=== PATIENT | female | born 2000 | race Caucasian/White ===

== ENCOUNTER 2020-11-28 17:23 | Emergency (ER) | payer OTHER, SELFPAY ==
[2020-11-28 17:32] VITALS: BP 130/60; PULSE 77; RESP 16; TEMP 36.2; O2SAT 99; BMI 34.3
--- NOTE | 2020-11-28 17:43 | ED_ITS ---
HPI - General Adult General Chief complaint: General Medical Stated complaint: TEST Time Seen by Provider: 11/28/20 17:39 Source: patient Mode of arrival: ambulatory Limitations: no limitations History of Present Illness HPI narrative: 20-year-old female presents with positive OTC test, requesting a urinalysis test at this facility. States 1st , does not have any other concerns. Denies chest pain pressure palpitations shortness breath abdominal pain abdominal distention dysuria hematuria vaginal discharge abnormal vaginal bleeding, pelvic pain or any other concerning sy mptoms. Severity: mild Severity scale (1-10): 1 Associated symptoms: denies other symptoms Related Data Allergies Allergy/AdvReac Type Severity Reaction Status Date / Time No Known Allergies Allergy Unverified 05/31/20 19:42 [No Known Allergies*] Review of Systems Review of Systems: Constitutional: No Fever, No Chills ENT/Mouth: No Ear Pain, No Hoarseness, No sore throat Eyes: No Eye Pain, No Swelling, No Redness, No Foreign Body Cardiovascular: No Chest Pain, No SOB Respiratory: No Cough, No Dyspnea Gastrointestinal: No Nausea, No Vomiting, No Diarrhea, No abdominal Pain Genitourinary: Missed menstrual cycle, No Dysuria, No Hematuria Musculoskeletal: No joint pain, No Myalgias, No Joint Swelling Skin: No Skin lacerations, No rash Neuro: No Weakness, No Numbness, No Paresthesias, No Loss of Consciousness, No Dizziness, No Headache Psych: No Anxiety/Panic, No Depression Heme/Lymph: no easy bruising, no Lymphadenopathy Endocrine: No Polyuria, No Polydipsia Yes all other systems are reviewed and are negative [facility] Past Medical History Attestation statement: The following information was validated with the patient. Source: old records reviewed Medical History No known health problems Social History Social History Alcohol intake: never Smoking Status: Never smoker Substance Use Type: Marijuana Advance Directives: No Advance Directives Information Provided: No Physical Exam Vital Signs: Vital Signs: Last Vital Signs Temp 97.2 F 11/28/20 17:32 Pulse 77 11/28/20 17:32 Resp 16 11/28/20 17:32 BP 130/60 11/28/20 17:32 Pulse Ox 99 11/28/20 17:32 Body Mass Index 34.3 Appearance: Alert. Oriented X3. No acute distress. Eyes: Pupils equal, round and reactive to light. ENT: Pharynx normal. Neck: Normal inspection. Neck supple. CVS: Normal heart rate and rhythm. Pulses normal. Respiratory: No respiratory distress. Breath sounds normal. Abdomen: Soft and nontender. Skin: Skin warm and dry. Normal skin color. Normal skin turgor. Extremities: No lower extremity edema. Neuro: No motor deficit. No sensory deficit. Course Course Course Narrative: 20-year-old female with no significant past medical history presents with a missed menstrual cycle, had a positive OTC test. Would like urinalysis test at this facility. U preg positive. Will refer to [facility] for care. Patient verbalized understanding of and agrees plan of care discharge home. Medical Decision Making Differential Diagnosis Differential Diagnosis: , amenorrhea Medical Records Medical records reviewed: Yes I reviewed the patient's medical records. Lab Data Lab results reviewed: Yes I reviewed the patient's lab results. Labs: Lab Results 11/28/20 Range/Units 17:40 Urine Test POSITIVE H (NEGATIVE) Discharge Plan Discharge Clinical Impression: Qualifiers: Weeks of gestation: less than 8 weeks Qualified Code(s): Z3A.01 - Less than 8 weeks gestation of Patient Disposition: Home, Self-Care Instructions: (ED) Additional Instructions: You were evaluated in the emergency department for urinalysis test. test is positive. Please follow-up with OBGYN. Thank you for choosing this emergency department for evaluation. Please follow-up with primary care physician as needed. Return to the emergency department for any new, concerning, or worsening symptoms. Referrals: Kalyan Buenrostro MD [Physician] - 2 weeks ( care)
[2020-11-28 18:08] LABS: UPreg QC Valid YES; Urine Pregnancy POSITIVE (NEGATIVE)
== END 2020-11-28 18:38 | disposition home or self-care (01) ==
PROVIDERS: Emergency Provider Emergency Medicine
DX: Z32.01 Encounter for pregnancy test, result positive (principal); F12.90 Cannabis use, unspecified, uncomplicated
CPT/HCPCS: 81025; 99282; 99284

== ENCOUNTER → 2020-12-05 09:34 | Outpatient (BNVA) | payer OTHER, SELFPAY | PROVIDERS: Visit Provider Advanced Practice Midwife | DX: Z32.01 Encounter for pregnancy test, result positive (principal); Z87.898 Personal history of other specified conditions | CPT/HCPCS: 81025; 99202 ==

== ENCOUNTER 2020-12-05 20:31 | Emergency (ER) | payer OTHER, SELFPAY ==
--- NOTE | ~2020-12-05 | US_ITS ---
EXAMINATION: US OBSTETRICAL ULTRASOUND CLINICAL INFORMATION: Abdominal pain and vaginal discharge. 6 weeks COMPARISON: 03/07/2020. TECHNIQUE: Both endovaginal and transabdominal scanning was performed. FINDINGS: The uterus is anteverted measuring 10.0 x 5.0 x 5.6 cm. Nabothian cysts are noted in the cervix. A gestational sac is present in the endometrial canal with a yolk sac seen along with a pole. The crown-rump length is 0.28 cm cyst which corresponds to a gestational age of 6 weeks 0 days with an TORI of 07/31/2021. A heart rate of 102 bpm was noted. No free intraperitoneal fluid was seen. The right ovary measured 2.8 x 3.3 x 1.8 cm and contained a 1.4 x 1.4 x 1.2 cm corpus luteum cyst. The left ovary measured 1.7 x 1.8 x 1.8 cm and appeared normal. US/US OB <= 14 weeks fetus IMPRESSION: 1. Single intrauterine gestation with ultrasound gestational age of 6 weeks +/- 4 days. 2. Estimated date of delivery is 07/31/2021 +/- 4 days. 3. No maternal adnexal mass or pelvic ascites.
--- NOTE | ~2020-12-05 | US_ITS ---
EXAMINATION: US OBSTETRICAL ULTRASOUND CLINICAL INFORMATION: Abdominal pain and vaginal discharge. 6 weeks COMPARISON: 03/07/2020. TECHNIQUE: Both endovaginal and transabdominal scanning was performed. FINDINGS: The uterus is anteverted measuring 10.0 x 5.0 x 5.6 cm. Nabothian cysts are noted in the cervix. A gestational sac is present in the endometrial canal with a yolk sac seen along with a pole. The crown-rump length is 0.28 cm cyst which corresponds to a gestational age of 6 weeks 0 days with an TORI of 07/31/2021. A heart rate of 102 bpm was noted. No free intraperitoneal fluid was seen. The right ovary measured 2.8 x 3.3 x 1.8 cm and contained a 1.4 x 1.4 x 1.2 cm corpus luteum cyst. The left ovary measured 1.7 x 1.8 x 1.8 cm and appeared normal. US/US OB transvaginal IMPRESSION: 1. Single intrauterine gestation with ultrasound gestational age of 6 weeks +/- 4 days. 2. Estimated date of delivery is 07/31/2021 +/- 4 days. 3. No maternal adnexal mass or pelvic ascites.
[2020-12-05 21:01] VITALS: BP 109/58; PULSE 75; RESP 16; TEMP 36.8; O2SAT 99; BMI 33.1
[2020-12-05 21:38] LABS: MANUAL DIFF FLAG NO
[2020-12-05 21:43] LABS: Basophils Percent Auto 0.3 % (0-2); Eosinophils Absolute Auto 0.1 X10*3/uL (0.0-0.4); Hematocrit 37.9 % (37-47); Hemoglobin 12.2 g/dl (12.0-16.0); Imm Gran Abs Auto 0.04 X10*3/uL (0.00-0.03); Imm Gran Pct Auto 0.3 % (0.0-0.4); Lymphocytes Absolute Auto 2.4 X10*3/uL (1.2-4.9); Lymphocytes Percent Auto 19.3 % (20-40); Mean Corpuscular HGB Conc 32.2 g/dl (31.0-35.0); Mean Corpuscular Hemoglobin 28.2 pg (27.0-33.0); Mean Corpuscular Volume 87.7 fL (80-98); Mean Platelet Volume 11.3 fL (9.4-12.3); Monocytes Percent Auto 8.2 % (2-11); Neutrophils Absolute Auto 8.8 X10*3/uL (2.0-8.3); Neutrophils Percent Auto 70.9 % (45-73); Platelet Count 365 X10*3/uL (160-400); Red Blood Count 4.32 X10*6/uL (4.20-5.50); White Blood Count 12.4 X10*3/uL (4.8-10.8)
[2020-12-05 21:47] LABS: Glucose Urine UA NEG (NEG); Leukocyte Esterase Urine NEG (NEG); Nitrite Urine NEG (NEG); Urine Blood NEG (NEG); Urine Ketones NEG (NEG); Urine Protein NEG (NEG-TRACE)
[2020-12-05 21:49] LABS: Appearance Urine CLEAR; Color Urine YELLOW; UPreg QC Valid YES; Urine Pregnancy POSITIVE (NEGATIVE)
[2020-12-05 22:00] VITALS: BP 117/49; PULSE 67; RESP 16; TEMP 36.6; O2SAT 99
[2020-12-05 22:00] LABS: Alanine Aminotransferase 9 U/L (0-31); Albumin Level 4.2 g/dL (3.5-5.0); Alkaline Phosphatase 55 U/L (39-117); Anion Gap 14 (12-20); Aspartate Amino Transferase 13 U/L (5-31); Bilirubin Total 0.4 mg/dL (0.0-1.0); Blood Urea Nitrogen 15 mg/dL (9-16); Calcium 9.3 mg/dL (8.4-10.2); Carbon Dioxide 24 mmol/L (22-29); Chloride 104 mmol/L (96-108); Creatinine Clr Calc Pharmacy 103.4; Estimated Glomerular Filt Rate > 60; Glucose Random 74 mg/dL (60-115); Lipase 56 U/L (8-78); Potassium 4.2 mmol/L (3.3-5.1); Sodium 138 mmol/L (135-145); Total Protein 7.1 g/dL (6.5-8.0)
--- NOTE | 2020-12-05 22:38 | PC.NURSE ---
PATIENT RETURNING FROM ULTRASOUND, AWAITING RESULTS.
--- NOTE | 2020-12-05 23:33 | ED_ITS ---
HPI - General Chief complaint: Vaginal Bleeding <LEXA Pan - Last Filed: 12/06/20 01:11> Stated complaint: Vaginal pain/discharge 6 wks preg <LEXA Pan - Last Filed: 12/06/20 01:11> Time Seen by Provider: 12/05/20 22:05 <LEXA Pan - Last Filed: 12/06/20 01:11> Source: patient <LEXA Pan Last Filed: 12/06/20 01:11> Mode of arrival: ambulatory <LEXA Pan - Last Filed: 12/06/20 01:11> Limitations: no limitations <LEXA Pan Last Filed: 12/06/20 01:11> History of Present Illness HPI Narrative: 20-year-old female with a past medical history of prediabetes, ovarian cyst, urinary calculi, UTI who is currently approximately 6 weeks last menstrual period was 10/29/2020 with recurrent due date of 07/29/2021 being followed by OB had her 1st appointment today presenting to the ED for complaints of suprapubic abdominal pain with associated abnormal vaginal discharge/vaginal bleeding that started today. Denies any fevers, chest pain, shortness of breath, nausea/vomiting, diarrhea, constipation, hematuria or thoughts of STDs. Denies recent travel or sick contacts or any other symptoms complaints or co ncerns at this time. <LEXA Pan - Last Filed: 12/06/20 01:11> MD Complaint: abdominal pain, vaginal bleeding and vaginal discharge <LEXA Pan - Last Filed: 12/06/20 01:11> Onset (ago): day(s) (today) <LEXA Pan - Last Filed: 12/06/20 01:11> Pain Consistency: constant <LEXA Pan Last Filed: 12/06/20 01:11> Location: pelvis <LEXA Pan Last Filed: 12/06/20 01:11> Severity: mild <LEXA Pan Last Filed: 12/06/20 01:11> Quality: Cramping and Aching <LEXA Pan Last Filed: 12/06/20 01:11> Relieving factors: none <LEXA Pan - Last Filed: 12/06/20 01:11> Exacerbating factors: none <LEXA Pan - Last Filed: 12/06/20 01:11> Associated symptoms: vaginal bleeding and vaginal discharge <LEXA Pan - Last Filed: 12/06/20 01:11> Vaginal discharge: other (White/brown/red discharge) <LEXA Pan - Last Filed: 12/06/20 01:11> Vaginal bleeding: other (Possibly) <LEXA Pan - Last Filed: 12/06/20 01:11> Date of Last Menstrual Period: 10/29/20 <LEXA Pan - Last Filed: 12/06/20 01:11> Patient : Yes <LEXA Pan - Last Filed: 12/06/20 01:11> Expected Date of Delivery: 07/29/21 <LEXA Pan - Last Filed: 12/06/20 01:11> Number of Weeks : 6 <LEXA Pan - Last Filed: 12/06/20 01:11> OB History - Current : no complications <LEXA Pan - Last Filed: 12/06/20 01:11> OB History - Previous Pregnancies: other (Has never had any previous pregnancies) <LEXA Pan - Last Filed: 12/06/20 01:11> care: followed by OB (Had her 1st appointment today) <LEXA Pan - Last Filed: 12/06/20 01:11> Related Data : 1 <LEXA Pan - Last Filed: 12/06/20 01:11> Para: 0 <LEXA Pan - Last Filed: 12/06/20 01:11> Total number of abortions (spontaneous and elective): 0 <LEXA Pan - Last Filed: 12/06/20 01:11> Home medications: Previous Rx's Medication Instructions Recorded doxylamine succinate 25 mg tablet 25 mg PO BEDTIME PRN #30 tab 12/05/20 vitamin with calcium 1 tab PO DAILY #90 tab 12/05/20 no.72-iron 27 mg-folic acid 1 mg tablet pyridoxine (vitamin B6) 25 mg 25 mg PO TID #90 tab 12/05/20 tablet acetaminophen [Tylenol Extra 1,000 mg PO QID PRN #14 tab 12/06/20 Strength] metronidazole 1 appful VAGINAL BID 7 Days g 12/06/20 <LEXA Pan Last Filed: 12/06/20 01:11> Allergies/Adverse reactions: Allergies Allergy/AdvReac Type Severity Reaction Status Date / Time No Known Allergies Allergy Verified 12/19/20 10:09 [No Known Allergies*] <LEXA Pan Last Filed: 12/06/20 01:11> Review of Systems Review of Systems: Constitutional : No Fever, No Chills ENT/Mouth : No sore throat, No Rhinorrhea Eyes: No Eye Pain, No Redness Cardiovascular : No Chest Pain, No SOB Respiratory : No Cough, No Sputum, No Wheezing Gastrointestinal : + Abdominal pain, No Nausea, No Vomiting, No Diarrhea Genitourinary : + irregular bleeding, + vaginal discharge, No Dysuria, No Urinary Frequency, No pelvic pain, no hematuria Musculoskeletal : No Myalgias Skin : No rash Neuro : No Weakness, No Headache Psych : No Anxiety/Panic, No Depression Heme/Lymph: No bruising, No Lymphadenopathy Endocrine : No Polyuria, No Polydipsia <LEXA Pan Last Filed: 12/06/20 01:11> Yes all other systems are reviewed and are negative <LEXA Pan Last Filed: 12/06/20 01:11> [facility] Past Medical History Attestation statement: The following information was validated with the patient. <LEXA Pan Last Filed: 12/06/20 01:11> Medical History: Medical History No known health problems <LEXA Pan Last Filed: 12/06/20 01:11> : 1 <LEXA Pan Last Filed: 12/06/20 01:11> Para: 0 <LEXA Pan Last Filed: 12/06/20 01:11> Total number of abortions (spontaneous and elective): 0 <LEXA Pan Last Filed: 12/06/20 01:11> Date of Last Menstrual Period: 10/29/20 <LEXA Pan - Last Filed: 12/06/20 01:11> Family History Family History: Family History Mother Thyroid disease <LEXA Pan - Last Filed: 12/06/20 01:11> Social History Social History: Social History (Updated 12/19/20 @ 10:16 by Gin Read LPN) Household Members: Significant Other and Family Alcohol intake: never Smoking Status: Never smoker Substance Use Type: Marijuana Agree to transfusion: Yes Gender identity: female <LEXA Pan - Last Filed: 12/06/20 01:11> Physical Exam Vital Signs: Vital Signs: Last Vital Signs Temp 98.0 F 12/05/20 23:41 Pulse 71 12/05/20 23:41 Resp 18 12/05/20 23:41 BP 101/54 L 12/05/20 23:41 Pulse Ox 100 12/05/20 23:41 Body Mass Index 33.1 vital signs have been reviewed as normal and appeared to be correct. Blood pressure normal. Heart rate normal. Respiration rate normal. Temperature normal. Oxygen saturation normal. <LEXA Pan - Last Filed: 12/06/20 01:11> Vital Signs: Last Vital Signs Temp 98.0 F 12/05/20 23:41 Pulse 71 12/05/20 23:41 Resp 18 12/05/20 23:41 BP 101/54 L 12/05/20 23:41 Pulse Ox 100 12/05/20 23:41 Body Mass Index 33.1 <Christiano Ramos MD - Last Filed: 12/25/20 06:25> Appearance: Alert. Oriented X3. No acute distress. Head: Normal external exam. Normocephalic. Atraumatic. No Johnson signs noted. No raccoon eyes noted Eyes: PERRLA. EOMI. Conjunctiva and sclera normal. Eyelids normal. ENT: EAC normal. TM's Normal. Pharynx normal. Uvula midline. Moist mucous membranes. No trismus noted. No drooling noted. No muffled voice noted. Neck: Normal inspection. Neck supple. FROM. No adenopathy. Thyroid Normal. No meningeal signs. No neck mass noted. CVS: Normal heart rate and rhythm. Heart sound normal. No murmurs noted. Pulses normal throughout. Respiratory: No respiratory distress. Painless inspiration. Breath sounds normal. No wheezes/rales/rhonchi noted. Chest nontender. No accessory muscle usage noted or decreased air movement noted. Abdomen: Soft and nontender. Bowel sounds normal in all 4 quadrants. No distention noted. No organomegaly noted. No visible injury noted. : Supervised by GAGAN Florez. Normal external appearance of urethra. No lesions/lacerations or discharge or tenderness noted. Speculum exam: normal appearance/palpation of vagina normal. Patient with abnormal discharge cottage cheese/white/brown/dark red colored noted. Otherwise no vaginal erythema. No foreign bodies noted. No vaginal laceration/lesions or active bleeding noted. No tissue present in vagina. No vaginal mass noted. No vaginal swelling noted. No vaginal tenderness noted. Normal appearance of cervix. Normal palpation of cervix. Cervical os is closed. Patient was noted to have a cottage cheese like discharge/white/thick brown/bloody like discharge right at the cervix with a possible blood clot versus some tissue right at the cervix when removed I placed it in a specimen cup and had the patient cough and no further tissue/vaginal discharge or bleeding from the cervix was noted. No active bleeding or hemorrhaging noted. No cervical lesion/mass. No Bartholin cyst noted. No cervical motion tenderness noted. Negative chandelier sign. Normal bimanual exam. Uterine size normal. Bladder normal to palpation. Uterine consistency normal. Normal cervical palpation. Uterine mobility normal. Uterine shape normal. Normal adnexa. Normal rectovaginal exam. Back: No CVA tenderness. Full range of motion noted. Skin: Skin warm and dry. Normal skin color. Normal skin turgor. No rashes/lesions/lacerations noted. Extremities: No lower extremity edema. Extremities exhibit normal range of motion. Extremities nontender. Neuro: Oriented X 3. No motor deficit. No sensory deficit. Reflexes normal. <LEXA Pan - Last Filed: 12/06/20 01:11> Course Course Course Narrative: 20-year-old female with a past medical history of prediabetes, ovarian cyst, urinary calculi, UTI who is currently approximately 6 weeks last menstrual period was 10/29/2020 with recurrent due date of 07/29/2021 being followed by OB had her 1st appointment today presenting to the ED for complaints of suprapubic abdominal pain with associated abnormal vaginal discharge/vaginal bleeding that started today. - labs obtained and all within normal limits. Serum quant appropriately elevated. Patient is A positive for blood type. UA within normal limits no evidence of UTI. At this time bacterial vaginosis/Trichomonas/yeast/gonorrhea and chlamydia cultures are pending. Ultrasound obtained reveals single intrauterine gestational with ultrasound the station all age of 6 weeks and +/-4 days with a delivery date of 07/31/2021. No acute processes noted. I consulted with Dr. Buenrostro and I sent that tissue/blood clot that I obtained from the patient's cervix and sent it for pathology for further testing. Otherwise will DC home with treatment for bacterial vaginosis. Patient denies thoughts of STDs therefore will not treat for STDs at this time wait for culture to be resulted. Along with instructions to return if any new or worsening symptoms and give patient instructions for threatened /miscarriage is instruction to follow-up with OBGYN. Patient and significant other at bedside understand and agree with this plan. <LEXA Pan - Last Filed: 12/06/20 01:11> I have reviewed the chart <Christiano Ramos MD - Last Filed: 12/25/20 06:25> Procedures Perimortem Number of Weeks : 6 <LEXA Pan - Last Filed: 12/06/20 01:11> MDM - OB/Uterine Contractions Medical Records Attestation: I reviewed the patient's medical records. <LEXA Pan - Last Filed: 12/06/20 01:11> Lab Data Attestation: I reviewed the patient's lab results. <LEXA Pan - Last Filed: 12/06/20 01:11> Result diagrams: : 12/05/20 21:34 12/05/20 21:34 <LEXA Pan - Last Filed: 12/06/20 01:11> Labs: Lab Results 12/05/20 12/05/20 12/05/20 Range/Units 21:24 21:34 21:34 WBC 12.4 H (4.8-10.8) X10*3/uL RBC 4.32 (4.20-5.50) X10*6/uL Hgb 12.2 (12.0-16.0) g/dl Hct 37.9 (37-47) % MCV 87.7 (80-98) fL MCH 28.2 (27.0-33.0) pg MCHC 32.2 (31.0-35.0) g/dl RDW 13.0 (11.0-16.0) % Plt Count 365 (160-400) X10*3/uL MPV 11.3 (9.4-12.3) fL Immature Gran % (Auto) 0.3 (0.0-0.4) % Neut % (Auto) 70.9 (45-73) % Lymph % (Auto) 19.3 L (20-40) % [place] % (Auto) 8.2 (2-11) % Eos % (Auto) 1.0 (0-4) % Baso % (Auto) 0.3 (0-2) % Lymph # (Auto) 2.4 (1.2-4.9) X10*3/uL [place] # (Auto) 1.0 (0.1-1.2) X10*3/uL Eos # (Auto) 0.1 (0.0-0.4) X10*3/uL Baso # (Auto) 0.0 (0.0-0.2) X10*3/uL Abs Immat Gran (auto) 0.04 H (0.00-0.03) X10*3/uL Absolute Neuts (auto) 8.8 H (2.0-8.3) X10*3/uL Absolute Nucleated RBC 0.000 (0.0-0.012) X10*3/uL Nucleated RBC % (auto) 0.0 (0.0-0.2) /100WBC Hold Blue Top SEE NOTE Sodium (135-145) mmol/L Potassium (3.3-5.1) mmol/L Chloride (96-108) mmol/L Carbon Dioxide (22-29) mmol/L Anion Gap (12-20) BUN (9-16) mg/dL Creatinine (0.5-1.4) mg/dL Estim Creat Clear Calc Estimated GFR Random Glucose (60-115) mg/dL Calcium (8.4-10.2) mg/dL Total Bilirubin (0.0-1.0) mg/dL AST (5-31) U/L ALT (0-31) U/L Alkaline Phosphatase (39-117) U/L Total Protein (6.5-8.0) g/dL Albumin (3.5-5.0) g/dL Lipase (8-78) U/L Beta HCG, Quant mIU/mL Urine Color Urine Appearance Urine pH (5.0-8.0) Ur Specific [place] (1.005-1.025) Urine Protein (NEG-TRACE) MG/DL Urine Glucose (UA) (NEG) MG/DL Urine Ketones (NEG) MG/DL Urine Blood (NEG) Urine Nitrite (NEG) Ur Leukocyte Esterase (NEG) Urine Test (NEGATIVE) Viviana species DNA (Negative) Chlam trachomat DNA PCR (Not Detect.) Gardnerella DNA Probe (Negative) N.gonorrhoeae DNA (PCR) (Not Detect.) Trichomonas DNA Probe (Negative) Blood Type A Positive 12/05/20 12/05/20 12/05/20 Range/Units 21:34 21:39 21:39 WBC (4.8-10.8) X10*3/uL RBC (4.20-5.50) X10*6/uL Hgb (12.0-16.0) g/dl Hct (37-47) % MCV (80-98) fL MCH (27.0-33.0) pg MCHC (31.0-35.0) g/dl RDW (11.0-16.0) % Plt Count (160-400) X10*3/uL MPV (9.4-12.3) fL Immature Gran % (Auto) (0.0-0.4) % Neut % (Auto) (45-73) % Lymph % (Auto) (20-40) % [place] % (Auto) (2-11) % Eos % (Auto) (0-4) % Baso % (Auto) (0-2) % Lymph # (Auto) (1.2-4.9) X10*3/uL [place] # (Auto) (0.1-1.2) X10*3/uL Eos # (Auto) (0.0-0.4) X10*3/uL Baso # (Auto) (0.0-0.2) X10*3/uL Abs Immat Gran (auto) (0.00-0.03) X10*3/uL Absolute Neuts (auto) (2.0-8.3) X10*3/uL Absolute Nucleated RBC (0.0-0.012) X10*3/uL Nucleated RBC % (auto) (0.0-0.2) /100WBC Hold Blue Top Sodium 138 (135-145) mmol/L Potassium 4.2 (3.3-5.1) mmol/L Chloride 104 (96-108) mmol/L Carbon Dioxide 24 (22-29) mmol/L Anion Gap 14 (12-20) BUN 15 (9-16) mg/dL Creatinine 0.75 (0.5-1.4) mg/dL Estim Creat Clear Calc 103.4 Estimated GFR > 60 Random Glucose 74 (60-115) mg/dL Calcium 9.3 (8.4-10.2) mg/dL Total Bilirubin 0.4 (0.0-1.0) mg/dL AST 13 (5-31) U/L ALT 9 (0-31) U/L Alkaline Phosphatase 55 (39-117) U/L Total Protein 7.1 (6.5-8.0) g/dL Albumin 4.2 (3.5-5.0) g/dL Lipase 56 (8-78) U/L Beta HCG, Quant 15595 mIU/mL Urine Color YELLOW Urine Appearance CLEAR Urine pH 6.0 (5.0-8.0) Ur Specific [place] 1.020 (1.005-1.025) Urine Protein NEG (NEG-TRACE) MG/DL Urine Glucose (UA) NEG (NEG) MG/DL Urine Ketones NEG (NEG) MG/DL Urine Blood NEG (NEG) Urine Nitrite NEG (NEG) Ur Leukocyte Esterase NEG (NEG) Urine Test POSITIVE H (NEGATIVE) Viviana species DNA (Negative) Chlam trachomat DNA PCR (Not Detect.) Gardnerella DNA Probe (Negative) N.gonorrhoeae DNA (PCR) (Not Detect.) Trichomonas DNA Probe (Negative) Blood Type 03/24/21 03/24/21 Range/Units 23:11 23:11 WBC (4.8-10.8) X10*3/uL RBC (4.20-5.50) X10*6/uL Hgb (12.0-16.0) g/dl Hct (37-47) % MCV (80-98) fL MCH (27.0-33.0) pg MCHC (31.0-35.0) g/dl RDW (11.0-16.0) % Plt Count (160-400) X10*3/uL MPV (9.4-12.3) fL Immature Gran % (Auto) (0.0-0.4) % Neut % (Auto) (45-73) % Lymph % (Auto) (20-40) % [place] % (Auto) (2-11) % Eos % (Auto) (0-4) % Baso % (Auto) (0-2) % Lymph # (Auto) (1.2-4.9) X10*3/uL [place] # (Auto) (0.1-1.2) X10*3/uL Eos # (Auto) (0.0-0.4) X10*3/uL Baso # (Auto) (0.0-0.2) X10*3/uL Abs Immat Gran (auto) (0.00-0.03) X10*3/uL Absolute Neuts (auto) (2.0-8.3) X10*3/uL Absolute Nucleated RBC (0.0-0.012) X10*3/uL Nucleated RBC % (auto) (0.0-0.2) /100WBC Hold Blue Top Sodium (135-145) mmol/L Potassium (3.3-5.1) mmol/L Chloride (96-108) mmol/L Carbon Dioxide (22-29) mmol/L Anion Gap (12-20) BUN (9-16) mg/dL Creatinine (0.5-1.4) mg/dL Estim Creat Clear Calc Estimated GFR Random Glucose (60-115) mg/dL Calcium (8.4-10.2) mg/dL Total Bilirubin (0.0-1.0) mg/dL AST (5-31) U/L ALT (0-31) U/L Alkaline Phosphatase (39-117) U/L Total Protein (6.5-8.0) g/dL Albumin (3.5-5.0) g/dL Lipase (8-78) U/L Beta HCG, Quant mIU/mL Urine Color Urine Appearance Urine pH (5.0-8.0) Ur Specific [place] (1.005-1.025) Urine Protein (NEG-TRACE) MG/DL Urine Glucose (UA) (NEG) MG/DL Urine Ketones (NEG) MG/DL Urine Blood (NEG) Urine Nitrite (NEG) Ur Leukocyte Esterase (NEG) Urine Test (NEGATIVE) Viviana species DNA Negative (Negative) Chlam trachomat DNA PCR NOT DETECTED (Not Detect.) Gardnerella DNA Probe Negative (Negative) N.gonorrhoeae DNA (PCR) NOT DETECTED (Not Detect.) Trichomonas DNA Probe Negative (Negative) Blood Type <LEXA Pan - Last Filed: 12/06/20 01:11> Lab Results 12/05/20 12/05/20 12/05/20 Range/Units 21:24 21:34 21:34 WBC 12.4 H (4.8-10.8) X10*3/uL RBC 4.32 (4.20-5.50) X10*6/uL Hgb 12.2 (12.0-16.0) g/dl Hct 37.9 (37-47) % MCV 87.7 (80-98) fL MCH 28.2 (27.0-33.0) pg MCHC 32.2 (31.0-35.0) g/dl RDW 13.0 (11.0-16.0) % Plt Count 365 (160-400) X10*3/uL MPV 11.3 (9.4-12.3) fL Immature Gran % (Auto) 0.3 (0.0-0.4) % Neut % (Auto) 70.9 (45-73) % Lymph % (Auto) 19.3 L (20-40) % [place] % (Auto) 8.2 (2-11) % Eos % (Auto) 1.0 (0-4) % Baso % (Auto) 0.3 (0-2) % Lymph # (Auto) 2.4 (1.2-4.9) X10*3/uL [place] # (Auto) 1.0 (0.1-1.2) X10*3/uL Eos # (Auto) 0.1 (0.0-0.4) X10*3/uL Baso # (Auto) 0.0 (0.0-0.2) X10*3/uL Abs Immat Gran (auto) 0.04 H (0.00-0.03) X10*3/uL Absolute Neuts (auto) 8.8 H (2.0-8.3) X10*3/uL Absolute Nucleated RBC 0.000 (0.0-0.012) X10*3/uL Nucleated RBC % (auto) 0.0 (0.0-0.2) /100WBC Hold Blue Top SEE NOTE Sodium (135-145) mmol/L Potassium (3.3-5.1) mmol/L Chloride (96-108) mmol/L Carbon Dioxide (22-29) mmol/L Anion Gap (12-20) BUN (9-16) mg/dL Creatinine (0.5-1.4) mg/dL Estim Creat Clear Calc Estimated GFR Random Glucose (60-115) mg/dL Calcium (8.4-10.2) mg/dL Total Bilirubin (0.0-1.0) mg/dL AST (5-31) U/L ALT (0-31) U/L Alkaline Phosphatase (39-117) U/L Total Protein (6.5-8.0) g/dL Albumin (3.5-5.0) g/dL Lipase (8-78) U/L Beta HCG, Quant mIU/mL Urine Color Urine Appearance Urine pH (5.0-8.0) Ur Specific [place] (1.005-1.025) Urine Protein (NEG-TRACE) MG/DL Urine Glucose (UA) (NEG) MG/DL Urine Ketones (NEG) MG/DL Urine Blood (NEG) Urine Nitrite (NEG) Ur Leukocyte Esterase (NEG) Urine Test (NEGATIVE) Viviana species DNA (Negative) Chlam trachomat DNA PCR (Not Detect.) Gardnerella DNA Probe (Negative) N.gonorrhoeae DNA (PCR) (Not Detect.) Trichomonas DNA Probe (Negative) Blood Type A Positive 12/05/20 12/05/20 12/05/20 Range/Units 21:34 21:39 21:39 WBC (4.8-10.8) X10*3/uL RBC (4.20-5.50) X10*6/uL Hgb (12.0-16.0) g/dl Hct (37-47) % MCV (80-98) fL MCH (27.0-33.0) pg MCHC (31.0-35.0) g/dl RDW (11.0-16.0) % Plt Count (160-400) X10*3/uL MPV (9.4-12.3) fL Immature Gran % (Auto) (0.0-0.4) % Neut % (Auto) (45-73) % Lymph % (Auto) (20-40) % [place] % (Auto) (2-11) % Eos % (Auto) (0-4) % Baso % (Auto) (0-2) % Lymph # (Auto) (1.2-4.9) X10*3/uL [place] # (Auto) (0.1-1.2) X10*3/uL Eos # (Auto) (0.0-0.4) X10*3/uL Baso # (Auto) (0.0-0.2) X10*3/uL Abs Immat Gran (auto) (0.00-0.03) X10*3/uL Absolute Neuts (auto) (2.0-8.3) X10*3/uL Absolute Nucleated RBC (0.0-0.012) X10*3/uL Nucleated RBC % (auto) (0.0-0.2) /100WBC Hold Blue Top Sodium 138 (135-145) mmol/L Potassium 4.2 (3.3-5.1) mmol/L Chloride 104 (96-108) mmol/L Carbon Dioxide 24 (22-29) mmol/L Anion Gap 14 (12-20) BUN 15 (9-16) mg/dL Creatinine 0.75 (0.5-1.4) mg/dL Estim Creat Clear Calc 103.4 Estimated GFR > 60 Random Glucose 74 (60-115) mg/dL Calcium 9.3 (8.4-10.2) mg/dL Total Bilirubin 0.4 (0.0-1.0) mg/dL AST 13 (5-31) U/L ALT 9 (0-31) U/L Alkaline Phosphatase 55 (39-117) U/L Total Protein 7.1 (6.5-8.0) g/dL Albumin 4.2 (3.5-5.0) g/dL Lipase 56 (8-78) U/L Beta HCG, Quant 98799 mIU/mL Urine Color YELLOW Urine Appearance CLEAR Urine pH 6.0 (5.0-8.0) Ur Specific [place] 1.020 (1.005-1.025) Urine Protein NEG (NEG-TRACE) MG/DL Urine Glucose (UA) NEG (NEG) MG/DL Urine Ketones NEG (NEG) MG/DL Urine Blood NEG (NEG) Urine Nitrite NEG (NEG) Ur Leukocyte Esterase NEG (NEG) Urine Test POSITIVE H (NEGATIVE) Viviana species DNA (Negative) Chlam trachomat DNA PCR (Not Detect.) Gardnerella DNA Probe (Negative) N.gonorrhoeae DNA (PCR) (Not Detect.) Trichomonas DNA Probe (Negative) Blood Type 12/05/20 12/05/20 Range/Units 23:11 23:11 WBC (4.8-10.8) X10*3/uL RBC (4.20-5.50) X10*6/uL Hgb (12.0-16.0) g/dl Hct (37-47) % MCV (80-98) fL MCH (27.0-33.0) pg MCHC (31.0-35.0) g/dl RDW (11.0-16.0) % Plt Count (160-400) X10*3/uL MPV (9.4-12.3) fL Immature Gran % (Auto) (0.0-0.4) % Neut % (Auto) (45-73) % Lymph % (Auto) (20-40) % [place] % (Auto) (2-11) % Eos % (Auto) (0-4) % Baso % (Auto) (0-2) % Lymph # (Auto) (1.2-4.9) X10*3/uL [place] # (Auto) (0.1-1.2) X10*3/uL Eos # (Auto) (0.0-0.4) X10*3/uL Baso # (Auto) (0.0-0.2) X10*3/uL Abs Immat Gran (auto) (0.00-0.03) X10*3/uL Absolute Neuts (auto) (2.0-8.3) X10*3/uL Absolute Nucleated RBC (0.0-0.012) X10*3/uL Nucleated RBC % (auto) (0.0-0.2) /100WBC Hold Blue Top Sodium (135-145) mmol/L Potassium (3.3-5.1) mmol/L Chloride (96-108) mmol/L Carbon Dioxide (22-29) mmol/L Anion Gap (12-20) BUN (9-16) mg/dL Creatinine (0.5-1.4) mg/dL Estim Creat Clear Calc Estimated GFR Random Glucose (60-115) mg/dL Calcium (8.4-10.2) mg/dL Total Bilirubin (0.0-1.0) mg/dL AST (5-31) U/L ALT (0-31) U/L Alkaline Phosphatase (39-117) U/L Total Protein (6.5-8.0) g/dL Albumin (3.5-5.0) g/dL Lipase (8-78) U/L Beta HCG, Quant mIU/mL Urine Color Urine Appearance Urine pH (5.0-8.0) Ur Specific [place] (1.005-1.025) Urine Protein (NEG-TRACE) MG/DL Urine Glucose (UA) (NEG) MG/DL Urine Ketones (NEG) MG/DL Urine Blood (NEG) Urine Nitrite (NEG) Ur Leukocyte Esterase (NEG) Urine Test (NEGATIVE) Viviana species DNA Negative (Negative) Chlam trachomat DNA PCR NOT DETECTED (Not Detect.) Gardnerella DNA Probe Negative (Negative) N.gonorrhoeae DNA (PCR) NOT DETECTED (Not Detect.) Trichomonas DNA Probe Negative (Negative) Blood Type <Christiano Ramos MD - Last Filed: 12/25/20 06:25> Imaging Data First trimester ultrasound/transvaginal ultrasound: Attestation: I personally reviewed and interpreted this imaging study as follows: <LEXA Pan - Last Filed: 12/06/20 01:11> Radiologist's impression: FINDINGS: The uterus is anteverted measuring 10.0 x 5.0 x 5.6 cm. Nabothian cysts are noted in the cervix. A gestational sac is present in the endometrial canal with a yolk sac seen along with a pole. The crown-rump length is 0.28 cm cyst which corresponds to a gestational age of 6 weeks 0 days with an TORI of 07/31/2021. A heart rate of 102 bpm was noted. No free intraperitoneal fluid was seen. The right ovary measured 2.8 x 3.3 x 1.8 cm and contained a 1.4 x 1.4 x 1.2 cm corpus luteum cyst. The left ovary measured 1.7 x 1.8 x 1.8 cm and appeared normal. US/US OB <= 14 weeks fetus IMPRESSION: 1. Single intrauterine gestation with ultrasound gestational age of 6 weeks +/- 4 days. 2. Estimated date of delivery is 07/31/2021 +/- 4 days. 3. No maternal adnexal mass or pelvic ascites. <LEXA Pan - Last Filed: 12/06/20 01:11> Discharge Plan Discharge Clinical Impression: Threatened , Vaginal bleeding, Bacterial vaginosis <LEXA Pan Last Filed: 12/06/20 01:11> Patient Disposition: Home, Self-Care <LEXA Pan Last Filed: 12/06/20 01:11> Instructions: Threatened Miscarriage (ED), Bacterial Vaginosis (ED) <LEXA Pan Last Filed: 12/06/20 01:11> Prescriptions: New acetaminophen [Tylenol Extra Strength] 500 mg tablet 1,000 mg PO QID PRN (Reason: fever or pain) Qty: 14 RF: 0 metronidazole 0.75 % gel 1 appful vaginal BID 7 Days RF: 0 No Action Vitamin Plus Low Iron 27 mg iron- 1 mg tablet 1 tab PO DAILY Qty: 90 RF: 3 pyridoxine (vitamin B6) 25 mg tablet 25 mg PO TID Qty: 90 RF: 0 Unisom (doxylamine) 25 mg tablet 25 mg PO BEDTIME PRN (Reason: sleep) Qty: 30 RF: 0 <LEXA Pan Last Filed: 12/06/20 01:11> Referrals: Kalyan Buenrostro MD [Physician] - 2 days <LEXA Pan - Last Filed: 12/06/20 01:11> Stand Alone Forms: Work/School Release <LEXA Pan - Last Filed: 12/06/20 01:11> Interventions: ED Discharge Assessment Last Done: 12/06/20 01:24 <LEXA Pan - Last Filed: 12/06/20 01:11> Discharge Date/Time: 12/06/20 01:32 <LEXA Pan - Last Filed: 12/06/20 01:11> Print Language: Bulgarian <LEXA Pan - Last Filed: 12/06/20 01:11>
[2020-12-05 23:41] VITALS: BP 101/54; PULSE 71; RESP 18; TEMP 36.7; O2SAT 100
--- NOTE | 2020-12-06 01:07 | P.CONOB_ITS ---
DIRECTOR OF PROVIDER RELATIONS - CN: HPI Data of Consult Consult date: 12/06/20 Primary Care Provider: Unknown Physician Consult Narrative Narrative: I was consulted regarding Huyen Barrera who is a 20 year old female who presented to the emergency room complaining of some spotting and abdominal cramping. CBC chemistry were within normal, ultrasound showed a 6 weeks intrauterine gestation with yolk sac and pole and a heart heart rate of 102 beats per minute. 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 Review of Systems ROS Unobtainable: All systems reviewed & are unremarkable except as noted in HPI and below Cardiovascular: Denies Palpatations, Loss of consciousness and Chest pain Respiratory: Denies Cough, Wheezing and Shortness of breath Musculoskeletal: Denies Low back pain Gastrointestinal: Denies Heartburn, Constipation, Diarrhea, Nausea and Vomiting Genitourinary: Denies Pain with urination, Burning with urination and Urinary frequency Neurological: Denies Migranes Psychological: Denies Depression OB PMFSH Past Medical History Medical History No known health problems Family History Family History Mother Thyroid disease Social History Social History Alcohol intake: never Smoking Status: Never smoker Use of substances other than those prescribed or required for medical reasons: No Substance Use Type: Marijuana Advance Directives: No Advance Directives Information Provided: Yes Gender identity: female Meds Allergies Allergy/AdvReac Type Severity Reaction Status Date / Time No Known Allergies Allergy Verified 12/05/20 09:52 [No Known Allergies*] DIRECTOR OF PROVIDER RELATIONS Physical Exam Vitals Vital signs: Temp Pulse Resp BP Pulse Ox 98.0 F 71 18 101/54 L 100 12/05/20 23:41 12/05/20 23:41 12/05/20 23:41 12/05/20 23:41 12/05/20 23:41 Body Mass Index 33.1 Additional Comments: Pelvic exam per LEXA Galeano revealed a small blood clot at the cervix that was removed with no active bleeding otherwise unremarkable DIRECTOR OF PROVIDER RELATIONS - Results Labs CBC & Chem 7: 12/05/20 21:34 12/05/20 21:34 Labs: Short CBC 03/24/21 Range/Units 21:34 WBC 12.4 H (4.8-10.8) X10*3/uL Hgb 12.2 (12.0-16.0) g/dl Hct 37.9 (37-47) % Plt Count 365 (160-400) X10*3/uL BMP 12/05/20 21:34 Sodium 138 Potassium 4.2 Chloride 104 Carbon Dioxide 24 BUN 15 Creatinine 0.75 Calcium 9.3 Liver Function 12/05/20 Range/Units 21:34 Total Bilirubin 0.4 (0.0-1.0) mg/dL AST 13 (5-31) U/L ALT 9 (0-31) U/L Alkaline Phosphatase 55 (39-117) U/L Albumin 4.2 (3.5-5.0) g/dL Urine 12/05/20 12/05/20 Range/Units 21:39 21:39 Urine Color YELLOW Urine Appearance CLEAR Urine pH 6.0 (5.0-8.0) Ur Specific [place] 1.020 (1.005-1.025) Urine Protein NEG (NEG-TRACE) MG/DL Urine Glucose (UA) NEG (NEG) MG/DL Urine Test POSITIVE H (NEGATIVE) Assessment and Plan (1) Threatened : Status: Acute Discussed the case with LEXA Galeano. Threatened A/B warnings to be given the patient , since the heart rate is on the low side, instructions to be given to patient to call if pelvic cramping and or vaginal bleeding occur. Follow-up in the office in 2 days.
[2020-12-06] MEDS: Acetaminophen 325 MG TABLET 975 MG PO (01:19)
[2020-12-06 09:05] LABS: BV Int Neg Control Negative (Negative); BV Int Pos Control Positive (Positive)
[2020-12-06 09:34] LABS: CT PCR NOT DETECTED (Not Detect.); NG PCR NOT DETECTED (Not Detect.)
== END 2020-12-06 01:32 | disposition home or self-care (01) ==
PROVIDERS: Physician Assistant Medical; Emergency Provider Emergency Medicine
DX: O20.0 Threatened abortion (principal); N76.0 Acute vaginitis; Z3A.01 Less than 8 weeks gestation of pregnancy
CPT/HCPCS: 36415; 76801; 76817; 80053; 81003; 81025; 83690; 84702; 85025; 86900; 86901; 87480; 87491; 87510; 87591; 87660; 88305; 99282; 99284

== ENCOUNTER 2020-12-10 09:02 | Outpatient (REF) | payer OTHER, SELFPAY ==
[2020-12-11 08:53] LABS: CT PCR NOT DETECTED (Not Detect.); NG PCR NOT DETECTED (Not Detect.)
== END 2020-12-10 09:03 | disposition home or self-care (01) ==
LOC: HO.LAB 09:02
PROVIDERS: Visit Provider Obstetrics & Gynecology
DX: Z34.90 Encounter for supervision of normal pregnancy, unspecified, unspecified trimester (principal)
CPT/HCPCS: 87491; 87591; 99212

== ENCOUNTER → 2020-12-19 09:52 | Outpatient (BNVA) | payer OTHER, SELFPAY | PROVIDERS: Visit Provider Advanced Practice Midwife | CPT/HCPCS: 99212 ==

== ENCOUNTER 2020-12-24 10:15 | Outpatient (REF) | payer OTHER, SELFPAY ==
--- NOTE | ~2020-12-24 | US_ITS ---
EXAMINATION: US OBSTETRICAL ULTRASOUND CLINICAL INFORMATION: Encounter for supervision abnormal COMPARISON: Previous exam 12/05/2020. LMP: 10/22/2020. Gestational age by maternal dates is 9 weeks 0 days. Estimated date of delivery by maternal dates is 07/29/2021. TECHNIQUE: Transabdominal first trimester OB ultrasound FINDINGS: There is a single intrauterine gestational sac with visible yolk sac, embryo/fetus, and cardiac activity. There is no significant subchorionic hemorrhage or hematoma. HR: 161 beats per minute. CRL (crown rump length): 2.1 cm (8 weeks 6 days +/- 4 days). TORI (estimated date of delivery): 07/30/2021 +/- 4 days. MATERNAL ADNEXA: The right maternal ovary measures 4.4 x 2.4 x 2.7 cm. The left maternal ovary measures 4.1 x 1.6 x 4 cm. There is no significant maternal adnexal mass. No maternal pelvic ascites. US/US OB <= 14 weeks fetus IMPRESSION: 1. Single intrauterine gestation with ultrasound gestational age of 8 weeks 6 days +/- 4 days. 2. Estimated date of delivery is 07/30/2021 +/- 4 days. 3. No maternal adnexal mass or pelvic ascites.
[2020-12-24 12:33] LABS: Amphetamine Screen Urine Not Detected (Not Detect); Barbiturates, Urine Not Detected (Not Detect); Benzodiazepines Screen Urine Not Detected (Not Detect); Cannabinoid Screen Urine Not Detected (Not Detect); Cocaine Screen Urine Not Detected (Not Detect); Opiate Screen Urine Not Detected (Not Detect); Phencyclidine Screen Urine Not Detected (Not Detect)
[2020-12-24 12:40] LABS: MANUAL DIFF FLAG NO
[2020-12-24 12:52] LABS: Basophils Percent Auto 0.4 % (0-2); Eosinophils Absolute Auto 0.1 X10*3/uL (0.0-0.4); Eosinophils Percent Auto 1.3 % (0-4); Hematocrit 35.5 % (37-47); Hemoglobin 11.4 g/dl (12.0-16.0); Imm Gran Abs Auto 0.03 X10*3/uL (0.00-0.03); Imm Gran Pct Auto 0.4 % (0.0-0.4); Lymphocytes Absolute Auto 1.6 X10*3/uL (1.2-4.9); Lymphocytes Percent Auto 18.9 % (20-40); Mean Corpuscular HGB Conc 32.1 g/dl (31.0-35.0); Mean Corpuscular Hemoglobin 28.7 pg (27.0-33.0); Mean Corpuscular Volume 89.4 fL (80-98); Mean Platelet Volume 11.2 fL (9.4-12.3); Monocytes Absolute Auto 0.5 X10*3/uL (0.1-1.2); Monocytes Percent Auto 6.3 % (2-11); Neutrophils Absolute Auto 6.2 X10*3/uL (2.0-8.3); Neutrophils Percent Auto 72.7 % (45-73); Platelet Count 357 X10*3/uL (160-400); Red Blood Count 3.97 X10*6/uL (4.20-5.50); Red Cell Distribution Width 13.5 % (11.0-16.0); White Blood Count 8.5 X10*3/uL (4.8-10.8)
[2020-12-24 13:04] LABS: Glucose 1 Hour 116 mg/dL
[2020-12-24 13:34] LABS: Syphilis Screen Nonreactive (Nonreactive)
[2020-12-25 08:13] LABS: HBsAGNum1 0.24 S/CO (0.00-0.99); Hepatitis B Surface Antigen Negative (Negative)
[2020-12-25 08:26] LABS: HIV AB/AG Nonreactive (Nonreactive); HIV Num 1 0.06 S/CO (0.00-0.99); ~HepC Num1 0.11 S/CO (0.00-0.79); ~Hepatitis C Antibody Nonreactive (Nonreactive)
[2020-12-25 08:47] LABS: Rubella IgG Antibody 1.41 Index
== END 2020-12-24 10:16 | disposition home or self-care (01) ==
LOC: HO.US 10:15
PROVIDERS: Advanced Practice Midwife; PCP Internal Medicine; Visit Provider Obstetrics & Gynecology
DX: Z34.91 Encounter for supervision of normal pregnancy, unspecified, first trimester (principal)
CPT/HCPCS: 76801; 80307; 82951; 85025; 86762; 86780; 86787; 86803; 86850; 86900; 86901; 87086; 87340; 87389

== ENCOUNTER 2020-12-27 11:38 | Outpatient (REF) | payer OTHER, SELFPAY ==
[2020-12-27 15:19] LABS: CT PCR NOT DETECTED (Not Detect.); NG PCR NOT DETECTED (Not Detect.)
[2020-12-28 11:03] LABS: BV Int Neg Control Negative (Negative); BV Int Pos Control Positive (Positive)
== END 2020-12-27 11:39 | disposition home or self-care (01) ==
LOC: HO.LAB 11:38
PROVIDERS: Visit Provider Advanced Practice Midwife
DX: O46.90 Antepartum hemorrhage, unspecified, unspecified trimester (principal)
CPT/HCPCS: 81003; 87480; 87491; 87510; 87591; 87660; 99212

== ENCOUNTER 2020-12-27 12:26 | Outpatient (REF) | payer OTHER, SELFPAY ==
--- NOTE | ~2020-12-27 | US_ITS ---
EXAMINATION: US OBSTETRICAL ULTRASOUND CLINICAL INFORMATION: O46.90 - Antepartum hemorrhage, unspecified, unspecified. Estimated date of delivery based on recent ultrasound 12/24/2020 is 07/30/2021+/-4 days. COMPARISON: Obstetrical ultrasound 12/24/2020, 12/05/2020. TECHNIQUE: Ultrasound of the maternal pelvis is performed using transabdominal and transvaginal transducers. Transvaginal imaging is performed due to inadequate visualization transabdominally. M-mode Doppler is also performed. FINDINGS: There is single intrauterine gestational sac with visible embryo, cardiac activity, and yolk sac. There is some clot seen in the lower uterine segment and endocervical canal measuring approximately 1.4 x 2.0 cm by 3.3 cm length. HR: 160 beats per minute. CRL (crown rump length): 2.2 cm (9 weeks 0 days +/- 4 days). MATERNAL ADNEXA: The right maternal ovary measures 3.7 x 2.3 x 3.1 cm. Small corpus luteum measuring 2.1 x 1.1 x 1.6 cm. The left maternal ovary measures 3.4 x 2.0 x 3.3 cm. No maternal pelvic ascites. US/US OB pelvic and transvaginal IMPRESSION: 1. Single intrauterine gestation with cardiac activity 160 bpm. 2. Clot in the lower uterine segment and proximal endocervical canal measuring 1.4 x 2.0 x 3.3 cm. 3. No maternal pelvic ascites or adnexal mass.
== END 2020-12-27 12:27 | disposition home or self-care (01) ==
LOC: HO.US 12:26
PROVIDERS: Visit Provider Advanced Practice Midwife
DX: O46.90 Antepartum hemorrhage, unspecified, unspecified trimester (principal)
CPT/HCPCS: 76801; 76817

== ENCOUNTER → 2020-12-28 13:07 | Outpatient (BNVA) | payer OTHER, SELFPAY | PROVIDERS: Visit Provider Advanced Practice Midwife | DX: Z34.90 Encounter for supervision of normal pregnancy, unspecified, unspecified trimester (principal); Z3A.09 9 weeks gestation of pregnancy | CPT/HCPCS: 99212 ==

== ENCOUNTER 2021-01-02 09:00 | Outpatient (REF) | payer OTHER, SELFPAY ==
[2021-01-02 09:30] LABS: COVID-19 Test Negative (Negative)
== END 2021-01-02 09:01 | disposition home or self-care (01) ==
LOC: HO.LAB 09:00
PROVIDERS: Visit Provider Internal Medicine
DX: Z20.822 Contact with and (suspected) exposure to COVID-19 (principal)
CPT/HCPCS: 36415; 87635; C9803

== ENCOUNTER 2021-01-11 10:23 | Outpatient (REF) | payer OTHER, SELFPAY ==
--- NOTE | ~2021-01-11 | US_ITS ---
EXAMINATION: OBSTETRICAL ULTRASOUND, FIRST TRIMESTER HISTORY: 20-year-old at the 11.4 weeks of gestation NT screening COMPARISON: 12/27/2020 TECHNIQUE: Real time transabdominal imaging with color and M-mode Doppler. FINDINGS: A single, live IUP CRL of 44.2 mm c/w 11.2wks is noted. Heart Rate: 155 beats per minute. Normal yolk sac seen. NT was 1.0.mm. NB Present The embryo appears sonographically wnl for this GA. Both maternal ovaries are seen and appear normal. GESTATIONAL AGE: 1. Established GA: 11.4 wks 2. GA from AUA: 11.2 wks ESTIMATED DATE OF DELIVERY: 1. Established TORI: 07/29/2021 2. TORI from AUA: 07/31/2021 US/US OB 1T nuc measure IMPRESSION: 1. Single live IUP 2. Size equals dates 3. NT of 1.0 mm MFM Consultation: I reviewed the ultrasound findings along with significance of NT measurement. The NT of less than 3mm is generally reassuring. However, the sensitivity for T21 detection is only 60%. I reviewed the availability of serum aneuploidy screening which includes cell-free DNA and placental protein based tests. I discussed the sensitivity, false-positive rate, and other limitations associated with each test. I also reviewed the availability of invasive diagnostic tests that are associated small but definite risk of miscarriage. We also reviewed the differences between screening tests and diagnostic tests. After our discussion, she opted for the First trimester screening that is based on cell-free DNA or non-invasive testing (NIPT). The result will be faxed to your office in approximately 7 days. A follow up at 18 weeks for survey has been scheduled. Thank you very much for this referral. Total time 20 minutes. The time spent was devoted to counseling the patient about the disease and diagnosis, coordinating care including reviewing her records, pertinent lab data and studies, as well as discussing diagnostic evaluation and workup, plan therapeutic interventions and future disposition of care. This includes any additional research needed to obtain further information in formulating the plan of care of this patient. This note was generated with a voice recognition program. Please excuse any errors which may have been overlooked during my review of this note. Sometimes these errors may affect the content or meaning of a given sentence.
== END 2021-01-11 10:24 | disposition home or self-care (01) ==
LOC: HO.US 10:23
PROVIDERS: Visit Provider Advanced Practice Midwife
DX: Z34.90 Encounter for supervision of normal pregnancy, unspecified, unspecified trimester (principal); Z36.82 Encounter for antenatal screening for nuchal translucency; Z3A.11 11 weeks gestation of pregnancy
CPT/HCPCS: 76813

== ENCOUNTER → 2021-02-05 13:52 | Outpatient (BNVA) | payer MEDICAID, SELFPAY | PROVIDERS: Visit Provider Advanced Practice Midwife | DX: Z34.90 Encounter for supervision of normal pregnancy, unspecified, unspecified trimester (principal); Z36.3 Encounter for antenatal screening for malformations; Z3A.15 15 weeks gestation of pregnancy | CPT/HCPCS: 99212 ==

== ENCOUNTER 2021-03-01 12:20 | Outpatient (REF) | payer MEDICAID, SELFPAY ==
--- NOTE | ~2021-03-01 | US_ITS ---
EXAMINATION: OBSTETRICAL ULTRASOUND, anatomy HISTORY: 20-year-old at 18.4 weeks of gestation Screening for anomaly COMPARISON: 01/11/2021 TECHNIQUE: Real time transabdominal imaging with color and M-mode Doppler. Transvaginal ultrasound was performed using an endovaginal probe. PRESENTATION: Breech PLACENTA LOCATION: Anterior without previa AMNIOTIC FLUID: Normal MEASUREMENTS: 1. Biparietal Diameter: 4.1 cm; 18.4 wks 2. Head Circumference: 15.1 cm; 18.2 wks 3. Abdominal Circumference: 12.5 cm; 18.1 wks 4. Femur Length: 2.7 cm; 18.2 wks 5. Heart Rate: 146 beats per minute There is cervical funneling to approximately 4 mm of the external os. (T/V). Heterogeneous debris noted in the amniotic cavity in the cervical canal. anatomic evaluation was not performed. GESTATIONAL AGE: 1. Established GA: 18.4 wks 2. GA from AUA: 18 point wks ESTIMATED DATE OF DELIVERY: 1. Established TORI: 07/29/2021 2. TORI from AUA: 07/30/2020 US/US OB transvaginal IMPRESSION: 1. A single fetus with appropriate interval growth. 2. Cervical funneling. The closed cervical length is approximately 4 mm. I reviewed the findings noted above and reviewed the increased risk of miscarriage or delivery at extremely premature gestational age. I briefly discussed the approximate prognosis of a fetus delivered at 23-24 weeks and at approximately 28 weeks. I reviewed the risks and benefits of rescue cervical cerclage. There is approximately 5% probability of iatrogenic rupture membranes, infection, and miscarriage. After our discussion, she is interested in the procedure. She has no known risk factors for cervical insufficiency. This is her first . She had low risk N IPT and normal NT measurement. RECOMMENDATIONS: 1. Referral to the [facility] for evaluation and possible placement of rescue cerclage. Thank you very much for this referral. Total time 30 minutes. The time spent was devoted to counseling the patient about the disease and diagnosis, coordinating care including reviewing her records, pertinent lab data and studies, as well as discussing diagnostic evaluation and workup, plan therapeutic interventions and future disposition of care. This includes any additional research needed to obtain further information in formulating the plan of care of this patient. This note was generated with a voice recognition program. Please excuse any errors which may have been overlooked during my review of this note. Sometimes these errors may affect the content or meaning of a given sentence.
--- NOTE | ~2021-03-01 | US_ITS ---
EXAMINATION: OBSTETRICAL ULTRASOUND, anatomy HISTORY: 20-year-old at 18.4 weeks of gestation Screening for anomaly COMPARISON: 01/11/2021 TECHNIQUE: Real time transabdominal imaging with color and M-mode Doppler. Transvaginal ultrasound was performed using an endovaginal probe. PRESENTATION: Breech PLACENTA LOCATION: Anterior without previa AMNIOTIC FLUID: Normal MEASUREMENTS: 1. Biparietal Diameter: 4.1 cm; 18.4 wks 2. Head Circumference: 15.1 cm; 18.2 wks 3. Abdominal Circumference: 12.5 cm; 18.1 wks 4. Femur Length: 2.7 cm; 18.2 wks 5. Heart Rate: 146 beats per minute There is cervical funneling to approximately 4 mm of the external os. (T/V). Heterogeneous debris noted in the amniotic cavity in the cervical canal. anatomic evaluation was not performed. GESTATIONAL AGE: 1. Established GA: 18.4 wks 2. GA from AUA: 18 point wks ESTIMATED DATE OF DELIVERY: 1. Established TORI: 07/29/2021 2. TORI from A: 07/30/2020 US/US OB /maternal detail IMPRESSION: 1. A single fetus with appropriate interval growth. 2. Cervical funneling. The closed cervical length is approximately 4 mm. I reviewed the findings noted above and reviewed the increased risk of miscarriage or delivery at extremely premature gestational age. I briefly discussed the approximate prognosis of a fetus delivered at 23-24 weeks and at approximately 28 weeks. I reviewed the risks and benefits of rescue cervical cerclage. There is approximately 5% probability of iatrogenic rupture membranes, infection, and miscarriage. After our discussion, she is interested in the procedure. She has no known risk factors for cervical insufficiency. This is her first . She had low risk N IPT and normal NT measurement. RECOMMENDATIONS: 1. Referral to the [facility] for evaluation and possible placement of rescue cerclage. Thank you very much for this referral. Total time 30 minutes. The time spent was devoted to counseling the patient about the disease and diagnosis, coordinating care including reviewing her records, pertinent lab data and studies, as well as discussing diagnostic evaluation and workup, plan therapeutic interventions and future disposition of care. This includes any additional research needed to obtain further information in formulating the plan of care of this patient. This note was generated with a voice recognition program. Please excuse any errors which may have been overlooked during my review of this note. Sometimes these errors may affect the content or meaning of a given sentence.
== END 2021-03-01 12:21 | disposition home or self-care (01) ==
LOC: HO.US 12:20
PROVIDERS: Visit Provider Advanced Practice Midwife
DX: Z34.92 Encounter for supervision of normal pregnancy, unspecified, second trimester (principal); Z36.3 Encounter for antenatal screening for malformations
CPT/HCPCS: 76811; 76817

== ENCOUNTER → 2021-03-28 10:29 | Outpatient (BNVA) | payer MEDICAID, SELFPAY | PROVIDERS: Visit Provider Advanced Practice Midwife | DX: O99.212 Obesity complicating pregnancy, second trimester (principal); E66.9 Obesity, unspecified; O99.891 Other specified diseases and conditions complicating pregnancy; R73.03 Prediabetes; O34.32 Maternal care for cervical incompetence, second trimester; Z3A.22 22 weeks gestation of pregnancy; Z79.890 Hormone replacement therapy | CPT/HCPCS: 99212 ==

== ENCOUNTER 2021-04-12 13:24 | Outpatient (REF) | payer MEDICAID, SELFPAY ==
--- NOTE | ~2021-04-12 | US_ITS ---
EXAMINATION: OBSTETRICAL ULTRASOUND, Follow up HISTORY: 20-year-old at 24.4 weeks of gestation Size date discrepancy Status post the rescue cerclage COMPARISON: 03/01/2021 TECHNIQUE: Real time transabdominal imaging with color and M-mode Doppler. PRESENTATION: Breech PLACENTA LOCATION: Anterior without previa AMNIOTIC FLUID: Normal MEASUREMENTS: 1. Biparietal Diameter: 5.4 cm; 22.3 wks 2. Head Circumference: 22.3 cm; 24.3 wks 3. Abdominal Circumference: 18.7 cm; 23.4 wks 4. Femur Length: 4.6 cm; 25.3 wks 5. Heart Rate: 147 beats per minute WEIGHT: EFW: 670 grams (1 lbs 8 oz) -- 25 %. Transvaginal ultrasound showed the cervix funneling to the level of the cerclage. Closed length is approximately 1 cm. GESTATIONAL AGE: 1. Established GA: 24.4 wks 2. GA from A: 24.0 wks ESTIMATED DATE OF DELIVERY: 1. Established TORI: 07/29/2021 2. TORI from A: 08/02/2021 US/US OB transvaginal IMPRESSION: 1. A single active fetus is in breech presentation 2. Size equals dates 3. Cervix funneling to the level of the cerclage. The closed length is approximately 1 cm. She denies vaginal bleeding or contractions. I discussed today's ultrasound findings as well as the approximate prognosis of a child born at 24, 28 and 32 weeks of gestation. She informs me that that she is planning to transfer her care to [facility]. Given the funneling cervix, I agree with the plan. Advised her to be on pelvic rest and refrain from strenuous activities. Further follow-up ultrasound has not been scheduled. Thank you very much for this referral. Total time 30 minutes. The time spent was devoted to counseling the patient about the disease and diagnosis, coordinating care including reviewing her records, pertinent lab data and studies, as well as discussing diagnostic evaluation and workup, plan therapeutic interventions and future disposition of care. This includes any additional research needed to obtain further information in formulating the plan of care of this patient. This note was generated with a voice recognition program. Please excuse any errors which may have been overlooked during my review of this note. Sometimes these errors may affect the content or meaning of a given sentence.
--- NOTE | ~2021-04-12 | US_ITS ---
EXAMINATION: OBSTETRICAL ULTRASOUND, Follow up HISTORY: 20-year-old at 24.4 weeks of gestation Size date discrepancy Status post the rescue cerclage COMPARISON: 03/01/2021 TECHNIQUE: Real time transabdominal imaging with color and M-mode Doppler. PRESENTATION: Breech PLACENTA LOCATION: Anterior without previa AMNIOTIC FLUID: Normal MEASUREMENTS: 1. Biparietal Diameter: 5.4 cm; 22.3 wks 2. Head Circumference: 22.3 cm; 24.3 wks 3. Abdominal Circumference: 18.7 cm; 23.4 wks 4. Femur Length: 4.6 cm; 25.3 wks 5. Heart Rate: 147 beats per minute WEIGHT: EFW: 670 grams (1 lbs 8 oz) -- 25 %. Transvaginal ultrasound showed the cervix funneling to the level of the cerclage. Closed length is approximately 1 cm. GESTATIONAL AGE: 1. Established GA: 24.4 wks 2. GA from A: 24.0 wks ESTIMATED DATE OF DELIVERY: 1. Established TORI: 07/29/2021 2. TORI from AUA: 08/02/2021 US/US OB follow up IMPRESSION: 1. A single active fetus is in breech presentation 2. Size equals dates 3. Cervix funneling to the level of the cerclage. The closed length is approximately 1 cm. She denies vaginal bleeding or contractions. I discussed today's ultrasound findings as well as the approximate prognosis of a child born at 24, 28 and 32 weeks of gestation. She informs me that that she is planning to transfer her care to [facility]. Given the funneling cervix, I agree with the plan. Advised her to be on pelvic rest and refrain from strenuous activities. Further follow-up ultrasound has not been scheduled. Thank you very much for this referral. Total time 30 minutes. The time spent was devoted to counseling the patient about the disease and diagnosis, coordinating care including reviewing her records, pertinent lab data and studies, as well as discussing diagnostic evaluation and workup, plan therapeutic interventions and future disposition of care. This includes any additional research needed to obtain further information in formulating the plan of care of this patient. This note was generated with a voice recognition program. Please excuse any errors which may have been overlooked during my review of this note. Sometimes these errors may affect the content or meaning of a given sentence.
== END 2021-04-12 13:25 | disposition home or self-care (01) ==
LOC: HO.US 13:24
PROVIDERS: Visit Provider Advanced Practice Midwife
DX: O34.30 Maternal care for cervical incompetence, unspecified trimester (principal); O99.210 Obesity complicating pregnancy, unspecified trimester; E66.9 Obesity, unspecified
CPT/HCPCS: 76816; 76817

== ENCOUNTER 2021-06-13 15:41 | Outpatient (REF) | payer MEDICAID, SELFPAY | END 2021-06-13 15:42 | disposition home or self-care (01) | LOC: HO.LAB 15:41 | PROVIDERS: Visit Provider Internal Medicine | DX: Z20.822 Contact with and (suspected) exposure to COVID-19 (principal) | CPT/HCPCS: C9803; U0003; U0005 ==

== ENCOUNTER 2021-12-06 17:22 | Emergency (ER) | payer MEDICAID, SELFPAY ==
[2021-12-06 17:27] VITALS: BP 112/61; PULSE 84; RESP 18; TEMP 36.9; O2SAT 99; BMI 38.3
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
== END 2021-12-06 18:16 | disposition home or self-care (01) ==
PROVIDERS: Emergency Provider Internal Medicine
DX: R51.9 Headache, unspecified (principal); S16.1XXA Strain of muscle, fascia and tendon at neck level, initial encounter; V43.52XA Car driver injured in collision with other type car in traffic accident, initial encounter; Y93.89 Activity, other specified; Y92.414 Local residential or business street as the place of occurrence of the external cause; Y99.0 Civilian activity done for income or pay
CPT/HCPCS: 99283

== ENCOUNTER 2023-06-16 15:03 | Outpatient (REF) | payer MEDICAID, SELFPAY ==
[2023-06-18 16:58] LABS: TS Negative Control Passed; TS Panel A 1; TS Panel B 0; TS Positive Control Passed; TSpotTB Negative (Negative)
== END 2023-06-16 15:04 | disposition home or self-care (01) ==
LOC: HO.HHCL 15:03
PROVIDERS: Visit Provider Nurse Practitioner Family
DX: Z11.1 Encounter for screening for respiratory tuberculosis (principal)
CPT/HCPCS: 36415; 86481

== ENCOUNTER 2023-06-24 11:41 | Emergency (ER) | payer MEDICAID, SELFPAY ==
--- NOTE | 2023-06-24 12:23 | ED_ITS ---
HPI - Back Pain/Injury General Chief Complaint: Back Pain/Injury Stated Complaint: Low Back Pain No Injury Time Seen by Provider: 06/24/23 12:54 Source: patient Mode of arrival: ambulatory Limitations: no limitations History of Present Illness HPI Narrative: 22 yo female presenting to the ER for evaluation of low back pain for the last 2 days. She denies a injury. She states she woke up with the pain in the middle of her lower back. It is worse with coughing, flexion of the spine and movement. She states it radiates to the front of her abdominal size at times but not all the time. It radiates to her buttocks as well. She cannot stay in 1 position for too long oral she is uncomfortable. She denies any urinary symptoms such as hematuria, frequency, urgency, dysuria. She denies any pelvic pain or vaginal discharge. She is unsure when her last period was or if she is . MD elicited complaint: back pain Onset (ago): day(s) (2) Timing: constant Severity: moderate Similar Symptoms Previously: Yes Quality: aching Location: lumbar spine, right lower back and left lower back Radiation: abdomen and buttocks Exacerbating factors: movement, walking and coughing/sneezing Relieving factors: none Context: unknown Associated symptoms: denies other symptoms Treatments prior to arrival: NSAIDS Work related injury: No Related Data Previous Rx's Medication Instructions Recorded vitamin with calcium 1 tab PO DAILY #90 tabs 12/05/20 no.72-iron 27 mg-folic acid 1 mg tablet ( Vitamins Plus Low Iron) acetaminophen 500 mg tablet 1,000 mg (2 x 500 mg) PO QID PRN 12/06/20 (Tylenol Extra Strength) fever or pain #14 tabs aspirin 81 mg tablet,delayed 162 mg (2 x 81 mg) PO DAILY #60 02/05/21 release (Adult Low Dose Aspirin) tabs progesterone micronized 200 mg 200 mg PO BEDTIME 30 days #30 caps 03/28/21 capsule acetaminophen 500 mg tablet 1,000 mg (2 x 500 mg) PO QID PRN 12/06/21 pain #30 tabs ibuprofen 600 mg tablet 600 mg PO Q6H PRN pain #20 tabs 12/06/21 cyclobenzaprine 10 mg tablet 10 mg PO TID PRN muscle spasm #14 06/24/23 tabs ibuprofen 600 mg tablet 600 mg PO Q8H PRN pain #20 tabs 06/24/23 lidocaine 5 % topical patch 1 patch topical DAILY #15 ea 06/24/23 Allergies Allergy/AdvReac Type Severity Reaction Status Date / Time No Known Allergies Allergy Verified 12/06/21 17:27 [No Known Allergies*] Review of Systems Review of Systems: Yes all other systems are reviewed and are negative [facility] Past Medical History Medical History No known health problems Obesity Pre-diabetes Surgical History History of cervical cerclage Family History Family History Mother Thyroid disease Social History Social History Household Members: Significant Other and Family Alcohol intake: never Substance Use Type: Marijuana Agree to transfusion: Yes Advance Directives: No Gender identity: Female Physical Exam Vital Signs: Vital Signs: Last Vital Signs Temp 98.0 F 06/24/23 12:24 Pulse 72 06/24/23 12:24 Resp 18 06/24/23 12:24 BP 105/61 06/24/23 12:24 Pulse Ox 100 06/24/23 12:24 O2 Del Method Room Air 06/24/23 12:24 BMI result Body Mass Index 32.3 Appearance: Alert. Oriented X3. No acute distress. HEENT: normal inspection CVS: Normal heart rate and rhythm. Pulses normal. Respiratory: No respiratory distress. Skin: Skin warm and dry. Normal skin color. Normal skin turgor. No rashes. Back: Normal inspection, limited spinal flexion due to pain. Pain with rotation to the left to the right. There is tenderness across the entire lumbar area with palpable spasm appreciated of the paraspinous muscles. no CVA tenderenss Extremities: Normal inspection x4, no joint swelling, normal range of motion. Neuro: Oriented X 3. No motor deficit. No sensory deficit. Steady gait Course Course Course Narrative: This is an RME: Additional HPI, ROS, PE not included below will be deferred to primary provider. This is a [id number] presenting to the emergency department with a complaint of atraumatic low back pain x two days. Patient reports that she has had back pain that is radiating bilaterally into her abdomen. She is also reporting concerns for . Unsure when her last menses was. Reporting urinary frequency, no dysuria, hematuria. No midline spine tenderness. No saddle anesthesia. Ambulatory. Plan: UA, U preg Medications Administered Discontinued Medications Generic Name Dose Route Start Last Admin Trade Name Luiz PRN Reason Stop Dose Admin Ketorolac Tromethamine 30 mg 06/24/23 13:55 06/24/23 14:41 Ketorolac Tromethamine 30 Mg/Ml Vial IM 06/24/23 13:56 30 mg ONCE ONE Administration Lidocaine 1 patch 06/24/23 13:55 06/24/23 14:41 Lidocaine 4 % Patch Adh..Patch TRANSDERMA 06/24/23 13:56 1 patch ONCE ONE Administration Protocol Medical Decision Making Medical Decision Making [facility] Narrative: 22-year-old female presents the ER for evaluation nontraumatic low back pain for the last 2 or 3 days. No red flag symptoms of low back pain. She has palpable spasm and tenderness on examination with limited spinal flexion, pain is worse with movement. No urinary symptoms. Her urinalysis is negative for infection and . No blood. Will treat for musculoskeletal back pain w ith muscle relaxer, NSAID, Lidoderm. She was given return precautions and instructions on low back pain and low back exercises. She is stable for discharge home with supportive care and outpatient follow-up. Patient agrees with plan. Differential Diagnosis Differential Diagnoses: The differential diagnosis associated with the presenta tion includes Inflammatory disorders, malignancy, trauma, nerve root compression, radiculopathy, plexopathy, degenerative disc disease, disc herniation, spinal stenosis, sacroiliac joint dysfunction, facet joint injury, and less likely infection?like abscess or diskitis Lab Data [facility] Lab Attestation statement: I reviewed the patient's lab results. Labs: Lab Results 06/24/23 Range/Units 12:51 Urine Color Yellow Urine Appearance Clear Urine pH 5.5 (5.0-9.0) Ur Specific [place] 1.010 (1.005-1.025) Urine Protein Negative (Neg-Trace) mg/dL Urine Glucose (UA) Negative (Negative) mg/dL Urine Ketones Negative (Negative) mg/dL Urine Blood Negative (Negative) Urine Nitrite Negative (Negative) Ur Leukocyte Esterase Negative (Negative) Urine Test NEGATIVE (NEGATIVE) External Record Review External record reviewed: Prior outpatient labs Tests considered The following testing was considered but not selected: Considered x-ray lumbar spine however this was deferred given no trauma Prescription Management I considered prescription management with: Pain Medication Critical Care Time Critical Care Time Critical Care Time: No Discharge Plan Discharge Clinical Impression: Strain of lumbar region Qualifiers: Encounter type: initial encounter Qualified Code(s): S39.012A - Strain of muscle, fascia and tendon of lower back, initial encounter Patient Disposition: Home, Self-Care Instructions: Low Back Strain (ED), Lower Back Exercises (ED) Additional Instructions: Your urine test was negative for infection and Your pain is most likely due to muscle strain and spasm. No bending, lifting or twisting. Use ice several times per day for 20 minutes at a time for the next 48 hours and then change to heat. Take medications as prescribed to help with pain and discomfort. Follow up with your Primary Care Doctor this week. If your pain worsens, if you develop new numbness, tingling, weakness, loss of function or incontinence call 911 or come back to the ER right away for evaluation. Prescriptions: New cyclobenzaprine 10 mg tablet 10 mg PO TID PRN (Reason: muscle spasm) Qty: 14 0RF lidocaine 5 % adhesive patch,medicated 1 patch topical DAILY Qty: 15 0RF Rx Instructions: leave on most painful area for up to 12 hrs ibuprofen 600 mg tablet 600 mg PO Q8H PRN (Reason: pain) Qty: 20 0RF No Action acetaminophen [Tylenol Extra Strength] 500 mg tablet 1,000 mg PO QID PRN (Reason: fever or pain) Qty: 14 0RF acetaminophen 500 mg tablet 1,000 mg PO QID PRN (Reason: pain) Qty: 30 0RF ibuprofen 600 mg tablet 600 mg PO Q6H PRN (Reason: pain) Qty: 20 0RF progesterone micronized 200 mg capsule 200 mg PO BEDTIME 30 Days Qty: 30 1RF Rx Instructions: vaginal insertion Vitamin Plus Low Iron 27 mg iron- 1 mg tablet 1 tab PO DAILY Qty: 90 3RF aspirin [Adult Low Dose Aspirin] 81 mg tablet,delayed release (DR/EC) 162 mg PO DAILY Qty: 60 10RF Referrals: [facility] [Primary Care Provider] - Stand Alone Forms: Work/School Release
[2023-06-24 12:24] VITALS: BP 105/61; PULSE 72; RESP 18; TEMP 36.7; O2SAT 100; BMI 32.3
== END 2023-06-24 15:20 | disposition home or self-care (01) ==
PROVIDERS: Emergency Provider Emergency Medicine Emergency Medical Services
DX: S39.012A Strain of muscle, fascia and tendon of lower back, initial encounter (principal); X58.XXXA Exposure to other specified factors, initial encounter; Y93.9 Activity, unspecified; Y92.9 Unspecified place or not applicable; Y99.9 Unspecified external cause status; Z79.899 Other long term (current) drug therapy
CPT/HCPCS: 81003; 81025; 96372; 99283; 99284; J1885

== ENCOUNTER 2023-11-11 13:10 | Emergency (ER) | payer MEDICAID, SELFPAY ==
[2023-11-11 13:17] VITALS: BP 108/69; PULSE 98; RESP 16; TEMP 36.2; O2SAT 96; BMI 32.9
--- NOTE | 2023-11-11 13:18 | ED_ITS ---
HPI - General Adult General Chief complaint: Nausea/Vomiting/Diarrhea Stated complaint: Vomiting Flu Symptoms Time Seen by Provider: 11/11/23 13:26 Source: patient Mode of arrival: ambulatory Limitations: no limitations History of Present Illness HPI narrative: Patient is a 23 year old female with a history of ovarian cysts, urinary calculi, complicated (vaginal bleed early , malformation screening), obesity, and pre-diabetes presents with a 4 day history of abdominal pain with associated N/V/D. Patient states that her symptoms have worsened over the past 2 days to the point she has not been tolerating PO intake without a bout of vomiting or diarrhea. The patients daughter experienced similar symptoms last week, which resolved after 2-3 days. Attempts to relieve the pain/discomfort with pepto bismol were unsuccessful. Onset (ago): day(s) (4) Location: abdomen Radiation: non-radiation Severity: mild Severity scale (1-10): 2 Quality: aching Pain Consistency: intermittent Relieving factors: none Exacerbating factors: none Associated symptoms: nausea/vomiting and weakness Treatments prior to arrival: other (pepto bismol) Related Data Previous Rx's Medication Instructions Recorded vitamin with calcium 1 tab PO DAILY #90 tabs 12/05/20 no.72-iron 27 mg-folic acid 1 mg tablet ( Vitamins Plus Low Iron) acetaminophen 500 mg tablet 1,000 mg (2 x 500 mg) PO QID PRN 12/06/20 (Tylenol Extra Strength) fever or pain #14 tabs aspirin 81 mg tablet,delayed 162 mg (2 x 81 mg) PO DAILY #60 02/05/21 release (Adult Low Dose Aspirin) tabs progesterone micronized 200 mg 200 mg PO BEDTIME 30 days #30 caps 03/28/21 capsule acetaminophen 500 mg tablet 1,000 mg (2 x 500 mg) PO QID PRN 12/06/21 pain #30 tabs ibuprofen 600 mg tablet 600 mg PO Q6H PRN pain #20 tabs 12/06/21 cyclobenzaprine 10 mg tablet 10 mg PO TID PRN muscle spasm #14 06/24/23 tabs ibuprofen 600 mg tablet 600 mg PO Q8H PRN pain #20 tabs 06/24/23 lidocaine 5 % topical patch 1 patch topical DAILY #15 ea 06/24/23 ondansetron 4 mg disintegrating 4 mg PO Q8H 3 days #9 tabs 11/11/23 tablet Allergies Allergy/AdvReac Type Severity Reaction Status Date / Time No Known Allergies Allergy Verified 11/11/23 13:17 [No Known Allergies*] Review of Systems 2 Constitutional: Constitutional: Denies chills, Reports fatigue, Denies fever(s), Denies night sweats and Reports weakness Eyes: Eyes: Reports blurry vision, Denies change in vision, Denies diplopia, Denies eye discharge, Denies loss of vision and Denies eye pain Comments: After bouts of vomiting or diarrhea. ENT: Denies dizziness Cardiovascular: Cardiovascular: Reports no additional cardiovascular complaints, Denies chest pain, Denies lightheadedness and Denies Loss of Consciousness Respiratory: Respiratory: Reports no additional respiratory complaints Gastrointestinal: Gastrointestinal: Reports abdominal pain, Denies melena, Denies hematochezia, Denies change in bowel habits, Denies change in stool character, Reports diarrhea, Reports nausea and Reports vomiting Genitourinary: Genitourinary: Reports no additional female genitourinary complaints, Denies hematuria, Denies urinary frequency, Denies dysuria, Denies urinary incontinence, Denies urinary hesitancy and Denies urinary urgency Musculoskeletal: Musculoskeletal: Reports no additional musculoskeletal complaints, Denies numbness and Denies tingling Neurologic: Denies dizziness, Denies loss of vision, Denies numbness, Denies tingling and Reports weakness Psychiatric: Psychiatric: Reports no additional psychiatric complaints Endocrine: Endocrine: Reports no additional endocrine complaints and Reports fatigue Hematologic/Lymphatic: Hematologic/Lymphatic: Reports no additional hematologic/lymphatic complaints Allergic/Immunologic: Allergic/Immunologic: Reports no additional allergic/immunologic complaints [facility] Past Medical History Attestation statement: The following information was validated with the patient. Source: old records reviewed and nursing notes reviewed Medical History Obesity Pre-diabetes No known health problems Surgical History History of cervical cerclage Family History Family History Mother Thyroid disease Social History Social History Household Members: Significant Other and Family Alcohol intake: never Comment: MEDICATED AT TIME OF DISCHARGE Substance Use Type: Marijuana Agree to transfusion: Yes Advance Directives: No Advance Directives Information Provided: No Gender identity: Female Physical Exam ED Vital Signs: Vital Signs - 24 hr 11/11/23 13:17 Temperature 97.2 F Pulse Rate 98 Respiratory Rate 16 Blood Pressure 108/69 Pulse Oximetry 96 Oxygen Delivery Method Room Air BMI result Body Mass Index 32.9 Const General: cooperative, no acute distress, alert and awake Nutritional Appearance: well nourished Orientation/consciousness: patient oriented x3 Limitations: no limitations HENMT Head: Yes normal to inspection and Yes atraumatic Ears: hearing grossly normal bilaterally and external ears normal General nose exam: Normal external nose present, no nasal discharge noted and no epistaxis Face and sinus: Yes normal facial exam, No abrasion and No laceration Mouth: Normal oral and palatal mucosa present, no drooling and no muffled voice Eyes General: appearance normal, both eyes and all related structures Periorbital: periorbital findings normal Eyelids: Yes eyelids normal Conjunctivae: conjunctivae normal Pupils: Equal, round and reactive pupils present EOM: EOMs intact bilaterally Neck Neck: Yes normal visual inspection, Yes full ROM and Yes no lymphadenopathy Chest Chest palpation & inspection: normal inspection of the chest Resp Effort & Inspection: normal respiratory effort and able to speak in complete sentences GI Inspection: Yes normal to inspection Palpation (GI): Soft to palpation, not firm, nontender, no guarding and not rigid Neuro General: patient oriented x3 and moves all extremities Cranial nerves: Yes Equal, round and reactive pupils present Cognition (Neuro): normal cognition Motor exam (neuro): 5/5 motor strength present throughout Sensory Exam: Normal double simultaneous stimulation for sensation Coordination: [id number] test normal Extrem General: Yes normal to inspection, Yes full ROM and Yes capillary refill normal Psych Appearance: grossly normal Mental Status: mental status grossly normal Affect: normal affect Attitude: cooperative Thought process: Normal thought process present Thought content: Normal thought content present Insight: Good insight present (Psych) Course Course Course Narrative: This is a rapid medical exam: Additional HPI, ROS, PE not included below will be deferred to primary provider. Patient is a 23-year-old female presenting to the ED with complaint of nausea, vomiting, diarrhea for the past 4 days. Symptoms slowly improving, but now feels fatigued. Also complains of sweats. Plan: viral swabs, basic labs Medications Administered Discontinued Medications Generic Name Dose Route Start Last Admin Trade Name Luiz PRN Reason Stop Dose Admin Sodium Chloride 1,000 mls @ 999 mls/hr 11/11/23 13:30 11/11/23 14:41 Ns IV 11/11/23 14:30 Infused .Q1H1M KYLAH Infusion Ondansetron HCl 4 mg 11/11/23 14:05 11/11/23 14:34 Ondansetron Hcl 4 Mg/2 Ml Vial IVPUSH 11/11/23 14:06 4 mg ONCE ONE Administration Pantoprazole Sodium 40 mg 11/11/23 14:05 11/11/23 14:36 Pantoprazole Sodium 40 Mg/10 Ml Vial IVPUSH 11/11/23 14:06 40 mg ONCE ONE Administration Medical Decision Making Medical Decision Making [facility] Narrative: Patient is a 23 year old assigned female at with a history of ovarian cysts presenting to the emergency department today with nausea, vomiting, an diarrhea. Patient's physical exam was unremarkable. Patient's blood work was unremarkable. Patient's urine showed no acute process. I explained my physical exam findings as well as all test results to the patient. I answered all questions asked by the patient. I stressed the importance of the patient taking her medication as prescribed. I stressed the importance of the patient following up with her primary care provider. I stressed the importance of the patient returning to the emergency department immediately if her symptoms were to worsen or if she were to develop any dizziness, shortness of breath, difficulty breathing, chest pain, blurry vision, loss of vision, nausea, vomiting, abdominal pain, fever, chills, back pain, or any other complaints. Patient verbalized agreement and understanding with this treatment plan and discharge. Differential Diagnosis Differential Diagnoses: The differential diagnosis associated with the presentation includes COVID-19 Influenza Gastroenteritis Nausea Vomiting Viral illness Admission/Observation Consideration of admission/observation: Escalation of care including admission/observation considered Patient would have been admitted to the hospital had her work up had any findings where hospital admission was appropriate and her clinical presentation warranted hospital admission. Lab Data [facility] Lab Attestation statement: I reviewed the patient's lab results. My interpretation of these studies and their corresponding values is that they are grossly normal. 11/11/23 13:30 11/11/23 13:30 Labs: Lab Results 11/11/23 11/11/23 Range/Units 13:30 14:47 WBC 5.7 (4.8-10.8) X10*3/uL RBC 5.53 H (4.20-5.50) X10*6/uL Hgb 15.1 (12.0-16.0) g/dl Hct 46.4 (37.0-47.0) % MCV 83.9 (80.0-98.0) fL MCH 27.3 (27.0-33.0) pg MCHC 32.5 (31.0-35.0) g/dl RDW 14.9 (11.0-16.0) % Plt Count 367 (160-400) X10*3/uL MPV 10.6 (9.4-12.3) fL Immature Gran % (Auto) 0.2 (0.0-0.4) % Neut % (Auto) 57.7 (45-73) % Lymph % (Auto) 26.0 (20-40) % [place] % (Auto) 14.8 H (2-11) % Eos % (Auto) 1.0 (0-4) % Baso % (Auto) 0.3 (0-2) % Lymph # (Auto) 1.5 (1.2-4.9) X10*3/uL [place] # (Auto) 0.9 (0.1-1.2) X10*3/uL Eos # (Auto) 0.1 (0.0-0.4) X10*3/uL Baso # (Auto) 0.0 (0.0-0.2) X10*3/uL Abs Immat Gran (auto) 0.01 (0.00-0.03) X10*3/uL Absolute Neuts (auto) 3.3 (2.0-8.3) x10*3/uL Absolute Nucleated RBC 0.000 (0.0-0.012) X10*3/uL Nucleated RBC % (auto) 0.0 (0.0-0.2) /100WBC Sodium 137 (135-145) mmol/L Potassium 3.4 (3.3-5.1) mmol/L Chloride 103 (96-108) mmol/L Carbon Dioxide 24 (22-29) mmol/L Anion Gap 13 (12-20) BUN 12 (9-16) mg/dL Creatinine 0.90 (0.5-1.4) mg/dL Estim Creat Clear Calc 83.6 Estimated GFR > 60 Random Glucose 98 (60-115) mg/dL Calcium 9.5 (8.4-10.2) mg/dL Magnesium 2.3 (1.6-2.6) mg/dL Total Bilirubin 0.3 (0.0-1.0) mg/dL AST 23 (5-31) U/L ALT 21 (0-31) U/L Alkaline Phosphatase 61 (39-117) U/L Total Protein 8.6 H (6.5-8.0) g/dL Albumin 4.7 (3.5-5.0) g/dL Beta HCG, Quant < 2 mIU/mL Urine Color Dark Yellow Urine Appearance Cloudy Urine pH 6.0 (5.0-9.0) Ur Specific [place] >= 1.030 H (1.005-1.025) Urine Protein 30 (1+) H (Neg-Trace) mg/dL Urine Glucose (UA) Negative (Negative) mg/dL Urine Ketones Trace (Negative) mg/dL Urine Blood Negative (Negative) Urine Nitrite Negative (Negative) Ur Leukocyte Esterase Trace H (Negative) Urine RBC 0-2 (0-2) /HPF Urine WBC 0-5 (0-5) /HPF Ur Squamous Epith Cells 11-20 (0-2) /HPF Urine Bacteria Trace (None Seen) Hyaline Casts 3-5 (0-2) /LPF Influenza Type A (PCR) NEGATIVE (Negative) Influenza Type B (PCR) NEGATIVE (Negative) RSV RNA Qual (PCR) NEGATIVE (Negative) SARS-CoV-2 RNA (RT-PCR) NEGATIVE (Negative) Discharge Plan Discharge Clinical Impression: Nausea & vomiting Patient Disposition: Home, Self-Care Instructions: Acute Nausea and Vomiting (ED) Additional Instructions: Follow up with your primary care provider. Return to the emergency department immediately if your symptoms worsen or if you develop any dizziness, shortness of breath, difficulty breathing, chest pain, blurry vision, loss of vision, nausea, vomiting, abdominal pain, fever, chills, back pain, or any other complaints. Prescriptions: New ondansetron 4 mg tablet,disintegrating 4 mg PO Q8H 3 Days Qty: 9 0RF No Action acetaminophen [Tylenol Extra Strength] 500 mg tablet 1,000 mg PO QID PRN (Reason: fever or pain) Qty: 14 0RF acetaminophen 500 mg tablet 1,000 mg PO QID PRN (Reason: pain) Qty: 30 0RF ibuprofen 600 mg tablet 600 mg PO Q6H PRN (Reason: pain) Qty: 20 0RF cyclobenzaprine 10 mg tablet 10 mg PO TID PRN (Reason: muscle spasm) Qty: 14 0RF lidocaine 5 % adhesive patch,medicated 1 patch topical DAILY Qty: 15 0RF Rx Instructions: leave on most painful area for up to 12 hrs ibuprofen 600 mg tablet 600 mg PO Q8H PRN (Reason: pain) Qty: 20 0RF progesterone micronized 200 mg capsule 200 mg PO BEDTIME 30 Days Qty: 30 1RF Rx Instructions: vaginal insertion Vitamin Plus Low Iron 27 mg iron- 1 mg tablet 1 tab PO DAILY Qty: 90 3RF aspirin [Adult Low Dose Aspirin] 81 mg tablet,delayed release (DR/EC) 162 mg PO DAILY Qty: 60 10RF Referrals: [facility] [Primary Care Provider] - Stand Alone Forms: Work/School Release Print Language: Pashto
[2023-11-11 13:36] LABS: MANUAL DIFF FLAG NO
[2023-11-11 13:39] LABS: Basophils Percent Auto 0.3 % (0-2); Eosinophils Absolute Auto 0.1 X10*3/uL (0.0-0.4); Hematocrit 46.4 % (37.0-47.0); Hemoglobin 15.1 g/dl (12.0-16.0); Imm Gran Abs Auto 0.01 X10*3/uL (0.00-0.03); Imm Gran Pct Auto 0.2 % (0.0-0.4); Lymphocytes Absolute Auto 1.5 X10*3/uL (1.2-4.9); Mean Corpuscular HGB Conc 32.5 g/dl (31.0-35.0); Mean Corpuscular Hemoglobin 27.3 pg (27.0-33.0); Mean Corpuscular Volume 83.9 fL (80.0-98.0); Mean Platelet Volume 10.6 fL (9.4-12.3); Monocytes Absolute Auto 0.9 X10*3/uL (0.1-1.2); Monocytes Percent Auto 14.8 % (2-11); Neutrophils Absolute Auto 3.3 x10*3/uL (2.0-8.3); Neutrophils Percent Auto 57.7 % (45-73); Platelet Count 367 X10*3/uL (160-400); Red Blood Count 5.53 X10*6/uL (4.20-5.50); Red Cell Distribution Width 14.9 % (11.0-16.0); White Blood Count 5.7 X10*3/uL (4.8-10.8)
[2023-11-11 13:52] LABS: Alanine Aminotransferase 21 U/L (0-31); Albumin Level 4.7 g/dL (3.5-5.0); Alkaline Phosphatase 61 U/L (39-117); Anion Gap 13 (12-20); Aspartate Amino Transferase 23 U/L (5-31); Bilirubin Total 0.3 mg/dL (0.0-1.0); Blood Urea Nitrogen 12 mg/dL (9-16); Calcium 9.5 mg/dL (8.4-10.2); Carbon Dioxide 24 mmol/L (22-29); Chloride 103 mmol/L (96-108); Creatinine Clr Calc Pharmacy 83.6; Estimated Glomerular Filt Rate > 60; Glucose Random 98 mg/dL (60-115); Magnesium 2.3 mg/dL (1.6-2.6); Potassium 3.4 mmol/L (3.3-5.1); Sodium 137 mmol/L (135-145); Total Protein 8.6 g/dL (6.5-8.0)
[2023-11-11] MEDS: 0.9 % Sodium Chloride 1,000 ML 999 ML IV (14:01)
[2023-11-11 14:15] LABS: HCG Quantitative < 2 mIU/mL
[2023-11-11 14:24] LABS: Influenza A PCR NEGATIVE (Negative); Influenza B PCR NEGATIVE (Negative); Resp Syncy Virus RNA Qual PCR NEGATIVE (Negative); SARS COV2 PCR INHOUSE NEGATIVE (Negative)
[2023-11-11] MEDS: ondansetron HCL 4 MG/2 ML VIAL IVPUSH (14:34)
[2023-11-11] MEDS: Pantoprazole Sodium 40 MG/10 ML VIAL IVPUSH (14:36)
[2023-11-11 14:53] LABS: Appearance Urine Cloudy; Color Urine Dark Yellow; Glucose Urine UA Negative (Negative); Leukocyte Esterase Urine Trace (Negative); Nitrite Urine Negative (Negative); Specific Gravity - Urine >= 1.030 (1.005-1.025); UMIC TRIGGER UACC YES; Urine Blood Negative (Negative); Urine Ketones Trace mg/dL (Negative); Urine Protein 30 (1+) mg/dL (Neg-Trace)
[2023-11-11 15:13] LABS: Bacteria Urine Trace (None Seen); RBC Urine 0-2 /HPF (0-2); WBC Urine 0-5 /HPF (0-5)
== END 2023-11-11 15:43 | disposition home or self-care (01) ==
PROVIDERS: Physician Assistant Medical; Registered Nurse Emergency; Emergency Provider Emergency Medicine
DX: R11.2 Nausea with vomiting, unspecified (principal); R19.7 Diarrhea, unspecified; Z11.52 Encounter for screening for COVID-19; Z20.828 Contact with and (suspected) exposure to other viral communicable diseases
CPT/HCPCS: 0241U; 36415; 80053; 81001; 83735; 84702; 85025; 96361; 96374; 96375; 99284; C9113; J2405

== ENCOUNTER 2024-12-13 12:03 | Outpatient (REF) | payer MEDICAID, SELFPAY ==
--- OUTSIDE RECORDS SUMMARY | 2024-12-13 14:25 | XMS_ITS | Encounter Summary ---
Author Organization [employer] Address [address] [place] [address] Care Team Providers Care District Leader Name Role Phone Melissa Dupont NP Primary Care Provider [phone] Encounter Details Date Type Department Care Team (Latest Contact Info) Description 12/13/2024 Travel Social History Tobacco Use Types Packs/Day Years Used Date Smoking Tobacco: Never Smokeless Tobacco: Never Alcohol Use Standard Drinks/Week Comments Not Currently 0 (1 standard drink = 0.6 oz pur e alcohol) Depression Answer Date Recorded Patient Health Questionnaire-9 Score 2 12/13/2024 Patient Health Questionnaire-9 Score 2 12/13/2024 Last PHQ-9: Questionnaire Data Not on file 0 12/13/2024 Housing Stability Answer Date Recorded What is your housing situation today? I have [employer] 12/13/[address] you li ve. Do you have problems with any of the following? None of the above 12/13/2024 Food Insecurity Answer Date Recorded Within the past 12 months, y ou worried that your food would run out before you got money to buy more: Never True 12/13/2024 Within the past 12 months,th e food you bought just didn't last and you didn't have enough money to get more: Never True 09/2024 Transportation Answer Date Recorded In the past 12 months, has l ack of transportation kept you from medical appts, meetings, work or from getting things needed for daily living? No 12/13/2024 Utilities Answer Date Recorded In the past 12 months, has t he electric, gas, oil or water company threatened to shut off services in your home? No 12/13/2024 Depression Answer Date Recorded Patient Health Questionnaire-2 Score 1 12/13/2024 Internet Access Answer Date Recorded Internet Access Q1 Yes 12/13/2024 Internet Access Q2 Not on file 12/13/2024 Comments Unknown Sex and Gender Information Value Date Recorded Sex Assigned at Female 07/14/2022 10:36 AM EDT Legal Sex Female 10:36 AM EDT Gender Identity Female 07/14/2022 10:36 AM EDT Sexual Orientation Don't know 07/14/2022 10 :36 AM EDT documented as of this encounter Plan of Treatment Not on file documented as of this encounter Visit Diagnoses Not on filedocumented in this encounter Additional Health Concerns Assessment Noted Time PHQ-9 Depression Total Score: 2 12/14/19 25 11:59 AM EDT documented as of this encounter Care Teams District Leader Relationship Specialty Start Date End Date Melissa Dupont NP [address] [place] [address] PCP - General Family Medicine 03/10/24 documented as of this encounter
--- OUTSIDE RECORDS SUMMARY | 2024-12-13 14:25 | XMS_ITS | Clinical Summary ---
Author Organization [employer] Address [address] [facility] [address] [place] [address] Care Team Providers Care Passenger Elevator Operator Name Role Phone Melissa Dupont NP Primary Care Provider [phone] Allergies No known active allergies Medications levonorgestrel (Plan B) 1.5 MG tablet Take 1 tablet (1.5 mg) by mouth 1 (one) time for 1 dose. 1 tablet 12/14/19 25 025 Active adapalene (Differin) 0.1 % cream Apply topically at bedtime. 45 g 2 12/14/19 25 026 Active norethindrone (Vy) 0.35 MG tablet Take 0.35 mg by mouth. 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 History of severe pre-eclampsia 12/01/2024 History of marijuana use 12/01/2024 History of prediabetes 02/27/2023 Eczema 06/26/2019 Acanthosis nigricans 06/26/2019 Encounters Date Type Department Care Team Description 12/13/2024 11:00 AM EDT Office Visit [facility] [address] [place] [address] Melissa Dupont NP Possible exposure to STI (Primary Dx); Unprotected sex; Dietary counseling; Exercise counseling; Health care maintenance; H/O gestational diabetes mellitus, not currently ; Keratosis pilaris 12/13/2024 Travel 12/06/2024 Patient Outreach [facility] [address] [place] [address] Melissa Dupont NP Pre-visit Planning (SDOH unable to reach [facility]) 12/01/2024 Telephone [facility] [address] [place] [address] Earnestine Arellano MA Chart Prep 11/25/2024 Population Health Risk Score [facility] () Department [address] [place] [id number] Provider, Population Health Generic from Last 3 Months Immunizations Name Administration Dates Next Due Influenza injectable quadrivalent preservative f ree 09/01/2019 Influenza, IIV3, injectable 07/15/2021 MMR 08/08/2021 Tdap 05/10/2021 Social History Tobacco Use Types Packs/Day Years Used Date Smoking Tobacco: Never Smokeless Tobacco: Never Tobacco Cessation:Counseling Given: Not Answered Alcohol Use Standard Drinks/Week Comments Not Currently [...] Don't know 07/14/2022 10 :36 AM EDT Last Filed Vital Signs Vital Sign Reading Time Taken Comments Blood Pressure 117/68 12/13/2024 11:15 AM EDT Pulse 81 12/13/2024 11:15 AM EDT Temperature 36.4 ??C (97.6 ??F) 12/13/2024 11:15 AM E DT Respiratory Rate 16 12/13/2024 11:15 AM EDT Oxygen Saturation 98% 12/13/2024 11:15 AM EDT Inhaled Oxygen Concentration - - Weight 72.6 kg (160 lb) 12/13/2024 11:15 AM EDT Height 149.9 cm (4' 11 ) 12/13/2024 11:15 AM EDT Body Mass Index 32.32 12/13/2024 11:15 AM EDT Plan of Treatment Health Maintenance Due Date Last Done Comments Lipid Panel 1998 Family Planning (PISQ) 2013 HPV Vaccines (1 - 3-dose series) 2013 Hepatitis B Vaccines (1 of 3 - 19+ 3-dose series) 2017 Pap Smear 03/14/2023 03/14/2020 COVID-19 Vaccine (2 - 2023-2 5 season) 2024 07/01/2021 Influenza Vaccine (#1) 2024 , 09/01/2019 Alcohol/Substance Use Screening 12/13/2025 12/13/2024 Depression Screening 12/13/2025 12/13/2024, 12/13/2024 SDOH Screening 12/13/2025 12/13/2024 Tobacco Screening 12/13/2025 12/13/2024 DTaP/Tdap/Td Vaccines (2 - T d or Tdap) 05/10/2031 05/10/2021 Zoster Vaccines (1 of 2) 2048 RSV Patients and Patients Aged 60 years or older (1 - 1-dose 75+ series) 2073 HIV Screening Completed 02/24/2020 Hepatitis C Screening Completed 02/24/2020 HIB Vaccines Aged Out No longer eligi ble based on patient's age to complete this topic Hepatitis A Vaccines Aged Out No long er eligible based on patient's age to complete this topic IPV Vaccines Aged Out No longer eligi ble based on patient's age to complete this topic Meningococcal Vaccine Aged Out No beau lydia eligible based on patient's age to complete this topic Pneumococcal Vaccine: Pediatrics (0 to 5 Years) and At-Risk Patients (6 to 49) Years) Aged Out No longer eligible b ased on patient's age to complete this topic RSV under 20 months Aged Out No longe r eligible based on patient's age to complete this topic Rotavirus Vaccines Aged Out No longer eligible based on patient's age to complete this topic Procedures Procedure Name Priority Date/Time Associated Diagnosis Comments THINPREP PAP Routine 03/14/2020 4:02 PM EDT ZZZ HISTORICAL HEPATITIS C AB W/REFL TO HCV RNA, QN, PCR Routine 02/24/2020 11:08 AM EDT HIV 1/2 ANTIGEN/ANTIBODY, FOURTH GENERATION W/RFL Routine 02/24/2020 11:08 AM EDT from Last 3 Months or Most Recently Relevant to Health Maintenance Results * THINPREP PAP (03/14/2020 4:02 PM EDT) Clinical Information: [facility] Comment:None given COMMENT [facility] Comment: EXPLANATORY NOTE: ? The Pap is a screening test for cervical cancer. It is ?? not a diagnostic test and is subject to false negative ?? and false positive results. It is most reliable when a ?? satisfactory sample, regularly obtained, is submitted ?? with relevant clinical findings and history, and when ?? the Pap result is evaluated along with historic and ?? current clinical information. ?? In Classroom Tutor: [facility] Comment: GABRIELLE, CT(ASCP) CT screening location: [address] ??[id number] Interpretation/Resu lt: [facility] Comment:Negative for intraep ithelial lesion or malignancy. LMP: [facility] Comment:02/22/20 Prev. BX: NONE GIVEN [facility] Prev. PAP: [facility] Comment:NONE GIVEN Review In Classroom Tutor: [facility] Comment: MSM, CT(ASCP) CT screening location: [address] ??[address] SOURCE: [facility] Comment:None given Statement Of Adequacy: [facility] Comment: Satisfactory for evaluation. Endocervical/transformation zone component present. 03/14/2020 4:02 PM EDT Susan BALDWIN LAB PATHOLOGY ORDERABLES Final Result [facility] [address] * HEPATITIS C AB W/REFL TO HCV RNA, QN, PCR (02/24/2020 11:08 AM EDT) HEPATITIS C ANTIBODY NON-REACT [facility] NON-REACT [facility] INDEX 0.01 <1.00 [facility] Comment: ?? HCV antibody was non-reactive. There is no laboratory ?? evidence of HCV infection. ?? In most cases, no further action is required. However, if recent HCV exposure is suspected, a test for HCV RNA (test code 92119) is suggested. ?? For additional information please refer to http://education.exoro system/faq/TFG21e2 (This link is being provided for informational/ educational purposes only.) ?? HEPATITIS C ANTIBODY NON-REACT [facility]BAR[facility] NON-REACT [facility] INDEX 0.01 <1.00 [facility] Comment: ?? HCV antibody was non-reactive. There is no laboratory ?? evidence of HCV infection. ?? In most cases, no further action is required. However, if recent HCV exposure is suspected, a test for HCV RNA (test code 41937) is suggested. ?? For additional information please refer to http://Liquid Scenarios.exoro system/faq/BRY16r1 (This link is being provided for informational/ educational purposes only.) ?? 02/24/2020 11:0 8 AM EDT us Ray Watkins MD HISTORICAL/NON ORDERABLE LAB S Final Result [facility] [address] * HIV 1/2 ANTIGEN/ANTIBODY,FOURTH GENERATION W/RFL (02/24/2020 11:08 AM EDT) Pathologist [facility] HIV-1/2 ANTIGEN AND ANTIBODIES, 4TH GENERATION W/ REFLEX NON-REACT BARBARA NON-REACT BARBARA [facility] Comment: HIV-1 antigen and HIV-1/HIV-2 antibodies were not detected. There is no laboratory evidence of HIV infection. ?? PLEASE NOTE: This information has been disclosed to you from records whose confidentiality may be protected by state law. ??If your state requires such protection, then the state law prohibits you from making any further disclosure of the information without the specific written consent of the person to whom it pertains, or as otherwise permitted by law. A general authorization for the release of medical or other information is NOT sufficient for this purpose. ? For additional information please refer to http://Liquid Scenarios.exoro system/faq/WWJ478 (This link is being provided for informational/ educational purposes only.) ? The performance of this assay has not been clinically validated in patients less than 2 years old. ?? HIV-1/2 ANTIGEN AND ANTIBODIES, 4TH GENERATION W/ REFLEX NON-REACT [facility]BAR[facility] NON-REACT [facility] Comment: HIV-1 antigen and HIV-1/HIV-2 antibodies were not detected. There is no laboratory evidence of HIV infection. ?? PLEASE NOTE: This information has been disclosed to you from records whose confidentiality may be protected by state law. ??If your state requires such protection, then the state law prohibits you from making any further disclosure of the information without the specific written consent of the person to whom it pertains, or as otherwise permitted by law. A general authorization for the release of medical or other information is NOT sufficient for this purpose. ? For additional information please refer to http://Liquid Scenarios.exoro system/faq/FIP270 (This link is being provided for informational/ educational purposes only.) ? The performance of this assay has not been clinically validated in patients less than 2 years old. ?? HIV-1/2 ANTIGEN AND ANTIBODIES, 4TH GENERATION W/ REFLEX NON-REACT BARBARA NON-REACT BARBARA [facility] Comment: HIV-1 antigen and HIV-1/HIV-2 antibodies were not detected. There is no laboratory evidence of HIV infection. ?? PLEASE NOTE: This information has been disclosed to you from records whose confidentiality may be protected by state law. ??If your state requires such protection, then the state law prohibits you from making any further disclosure of the information without the specific written consent of the person to whom it pertains, or as otherwise permitted by law. A general authorization for the release of medical or other information is NOT sufficient for this purpose. ? For additional information please refer to http://Dark Mail Alliance/faq/VJB096 (This link is being provided for informational/ educational purposes only.) ? The performance of this assay has not been clinically validated in patients less than 2 years old. ?? 02/24/2020 11:0 8 AM EDT us Ray Watkins MD LAB BLOOD ORDERABLES Final R esult [facility] [address] from Last 3 Months or Most Recently Relevant to Health Maintenance Insurance [id number] C[facility] Care Teams Passenger Elevator Operator Relationship Specialty Start Date End Date Melissa Dupont NP [address] [place] [id number] PCP - General Family Medicine 03/10/24
--- OUTSIDE RECORDS SUMMARY | 2024-12-13 14:25 | XMS_ITS | Encounter Summary ---
Author Organization [employer] Address [address] [facility] [address] [place] [address] Care Team Providers Care Lead Worker Of Housekeeping And Laundry Name Role Phone Melissa Dupont NP Primary Care Provider Reason for Referral * Consultation (Routine) - Authorized Specialty Diagnoses / Procedures Referred By Suleman patton Referred To Contact Optometry Diagnoses Health care maintenance Melissa Dupont NP [address] [place] [address] Phone: tel: fax: [facility] OPT[facility]ET[facility] [address] [place] [address] Phone: tel: fax: Referral ID Status Reason Start Date Expiration Date Visits Requested Visits Authorized [id number] Authorized Consult and Treat 12/13/2024 12/13/2025 1 1 Encounter Details Date Type Department Care Team (Late st Contact Info) Description 12/13/2024 11:00 AM EDT Office Visit [facility] [address] [place] [address] Melissa Dupont NP [address] [place] [address] Possible exposure to STI (Primary Dx); Unprotected sex; Dietary counseling; Exercise counseling; Health care maintenance; H/O gestational diabetes mellitus, not currently ; Keratosis pilaris Social History Tobacco Use Types Packs/Day Years [...] AM EDT documented as of this encounter Last Filed Vital Signs Vital Sign Reading [...] Mass Index 32.32 12/13/2024 11:15 AM EDT documented in this encounter Plan of Treatment Scheduled Orders Name Type Priority Associated Diagnoses Orde r Schedule Chlamydia/N. Gonorrhoeae RNA, TMA, Urogenitial Microbiology Routine Possible Exposure To Sti Ordered: 12/13/2024 HIV-1/2 Antigen and Antibodies, Fourth Generation, with Reflexes Lab Routine Possible Exposure To Sti Expected: 12/13/2024 (Approximate), Expires: 12/13/2025 Hepatitis C Antibody with Reflex to HCV, RNA, Quantitative, Real-Time PCR Lab Routine Possible Exposure To Sti Expected: 12/13/2024, Expires: 12/13/2025 RPR (Monitor) with Reflex to??Titer Lab Routine Possible Exposure To Sti Expected: 12/13/2024, Expires: 12/13/2025 HIV-1/2 Antigen and Antibodies, Fourth Generation, with Reflexes Lab Routine Possible Exposure To Sti Expected: 12/13/2024 (Approximate), Expires: 12/13/2025 Comprehensive Metabolic Panel Lab Routine H/O gestational diabetes mellitus, not currently Expected: 12/13/2024 (Approximate), Expires: 12/13/2025 Hemoglobin A1c Lab Routine H/O gestational diabetes mellitus, not currently Expected: 12/13/2024 (Approximate), Expires: 12/13/2025 Scheduled Referrals Name Type Priority Associated Diagnoses Orde r Schedule Referral to [facility] Eye Care Outpatient Referral Routine Health care maintenance Expected: 12/13/2024 (Approximate), Expires: 12/13/2025 documented as of this encounter Visit Diagnoses Diagnosis Possible exposure to STI- Primary Unprotected sex Problems related to high-risk sexual behavior Dietary counseling Dietary surveillance and counseling Exercise counseling Health care maintenance H/O gestational diabetes mellitus, not currently Keratosis pilaris Other specified congenital anomaly of skin documented in this encounter Additional Health Concerns Assessment Noted Time PHQ-9 Depression Total Score: 2 12/14/19 25 11:59 AM EDT documented as of this encounter Care Teams Lead Worker Of Housekeeping And Laundry Relationship Specialty Start Date End Date Melissa Dupont NP [address] [place] [id number] PCP - General Family Medicine 03/10/24 documented as of this encounter
[2024-12-13 14:27] LABS: Alanine Aminotransferase 15 U/L (0-31); Albumin Level 3.9 g/dL (3.5-5.0); Alkaline Phosphatase 47 U/L (39-117); Anion Gap 7 (12-20); Aspartate Amino Transferase 16 U/L (5-31); Bilirubin Total 0.6 mg/dL (0.0-1.0); Blood Urea Nitrogen 16 mg/dL (9-16); Calcium 9.5 mg/dL (8.4-10.2); Carbon Dioxide 29 mmol/L (22-29); Chloride 110 mmol/L (96-108); Estimated Glomerular Filt Rate > 60; Glucose Random 78 mg/dL (60-115); Potassium 4.1 mmol/L (3.3-5.1); Sodium 142 mmol/L (135-145); Total Protein 6.7 g/dL (6.5-8.0)
[2024-12-13 17:09] LABS: Estimated Average Glucose 105 mg/dL; Hemoglobin A1C 108.9912 umol/L; Hemoglobin A1c % 5.3 % (<6.0); Total Hemoglobin (HGBA1C) 3190.3057 umol/L
[2024-12-14 08:11] LABS: HIV AB/AG Nonreactive (Nonreactive); HIV Num 1 0.08 S/CO (0.00-0.99); ~HepC Num1 0.21 S/CO (0.00-0.79); ~Hepatitis C Antibody Nonreactive (Nonreactive)
[2024-12-14 09:58] LABS: CT PCR NOT DETECTED (Not Detect.); NG PCR NOT DETECTED (Not Detect.)
[2024-12-14 11:59] LABS: RPR Rapid Plasma Reagin NON-REACTIVE (NON-REACTIVE)
== END 2024-12-13 12:04 | disposition home or self-care (01) ==
LOC: HO.HHCL 12:03
PROVIDERS: Visit Provider Nurse Practitioner Family
DX: Z20.2 Contact with and (suspected) exposure to infections with a predominantly sexual mode of transmission (principal); Z86.32 Personal history of gestational diabetes
CPT/HCPCS: 36415; 80053; 83036; 86592; 86803; 87389; 87491; 87591

== ENCOUNTER 2025-07-27 15:19 | Emergency (ER) | payer MEDICAID, SELFPAY ==
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
[2025-07-27 15:27] VITALS: BP 99/53; PULSE 72; RESP 16; TEMP 36.7; O2SAT 98; BMI 34.8
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
--- OUTSIDE RECORDS SUMMARY | 2025-07-27 19:03 | XMS_ITS | Clinical Summary ---
Author Organization [employer] Address [address] [facility] [address] [place] [address] Care Team Providers Care Silk Examiner Name Role Phone Melissa Dupont NP Primary Care Provider [phone] Allergies No known active allergies Medications adapalene (Differin) 0.1 % cream Apply topically at bedtime. 45 g 2 5 12/14/19 26 Active Active Problems Problem Noted Date Diagnosed Date Possible exposure to STI 12/13/2024 Unprotected sex 12/13/2024 Assessment & Plan (01/28/2025 4:45 PM EDT): Sti screening completed, pt using barrier protection, declines contraveptives today Dietary counseling 12/13/2024 Assessment & Plan (01/28/2025 4:45 PM EDT): Dietary Recommendations: Fruits, vegetables, whole grains, protein foods, and fat-free or low-fat dairy products are healthy choices. Eat different types of protein foods in your diet. This can include seafood, lean meats, poultry, beans, peas, lentils, nuts, seeds, soy products, and eggs. Limit foods and beverages higher in added sugars, saturated fat, and sodium. 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 No 12/13/2024 Depression Answer Date Recorded Patient Health Questionnaire-2 Score 1 12/13/2024 Internet Access Answer Date Recorded Internet Access Q1 Yes 12/13/2024 Internet Access Q2 Not on file 12/13/2024 Comments No Sex and Gender Information Value Date Recorded Sex Assigned at Female 07/14/2022 10:36 AM EDT Legal Sex Female 10:36 AM EDT Gender Identity Female 07/14/2022 10:36 AM EDT Sexual Orientation Don't know 07/14/2022 10 :36 AM EDT Last Filed Vital Signs Vital Sign Reading Time Taken Comments Blood Pressure 117/68 12/13/2024 11:15 AM EDT Pulse 81 12/13/2024 11:15 AM EDT Temperature 36.4 C (97.6 F) 12/13/2024 11:15 AM EDT Respiratory Rate 16 12/13/2024 11:15 AM EDT Oxygen Saturation 98% 12/13/2024 11:15 AM EDT Inhaled Oxygen Concentration - - Weight 72.6 kg (160 lb) 12/13/2024 11:15 AM EDT Height 149.9 cm (4' 11 ) 12/13/2024 11:15 AM EDT Body Mass Index 32.32 12/13/2024 11:15 AM EDT Plan of Treatment Health Maintenance Due Date Last Done Comments Lipid Panel 1998 Disability Screening 1998 Family Planning (PISQ) 2013 HPV Vaccines (1 - 3-dose series) 2013 Hepatitis B Vaccines (1 of 3 - 19+ 3-dose series) 2017 Pap Smear 03/14/2023 03/14/2020 COVID-19 Vaccine (2 - 2024-2 6 season) 2025 07/01/2021 Influenza Vaccine (#1) 2025 , 09/01/2019 Alcohol/Substance Use Screening 12/13/2025 12/13/2024 Depression Screening 12/13/2025 12/13/2024, 12/13/2024 SDOH Screening 12/13/2025 12/13/2024 Tobacco Screening 03/16/2026 03/16/2025 DTaP/Tdap/Td Vaccines (2 - T d or Tdap) 05/10/2031 05/10/2021 Zoster Vaccines (1 of 2) 2048 RSV Patients and Patients Aged 60 years or older (1 - 1-dose 75+ series) 2073 HIV Screening Completed 12/13/2024, 02/24/2020 Hepatitis C Screening Completed 12/13/2024 , 02/24/2020 HIB Vaccines Aged Out No longer eligi ble based on patient's age to complete this topic Hepatitis A Vaccines Aged Out No long er eligible based on patient's age to complete this topic IPV Vaccines Aged Out No longer eligi ble based on patient's age to complete this topic Meningococcal B Vaccine Aged Out No l onger eligible based on patient's age to complete this topic Meningococcal Vaccine Aged Out No beau lydia eligible based on patient's age to complete this topic Pneumococcal Vaccine: Pediatrics (0 to 5 Years) and At-Risk Patients (6 to 49) Years Aged Out No longer eligible b ased on patient's age to complete this topic RSV under 20 months Aged Out No longe r eligible based on patient's age to complete this topic Rotavirus Vaccines Aged Out No longer eligible based on patient's age to complete this topic Procedures Procedure Name Priority Date/Time Associated Diagnosis Comments HEPATITIS C AB W/REFL TO HCV RNA, QN, PCR Routine 12/13/2024 12:09 PM EDT Possible exposure to STI HIV 1/2 ANTIGEN/ANTIBODY, FOURTH GENERATION W/RFL Routine 12/13/2024 12:09 PM EDT Possible exposure to STI THINPREP PAP Routine 03/14/2020 4:02 PM EDT from Last 3 Months or Most Recently Relevant to Health Maintenance Results * Hepatitis C Antibody with Reflex to HCV, RNA, Quantitative, Real-Time PCR (12/13/2024 12:09 PM EDT) Hepatitis C Antibody Nonreactive Nonreactive [facility] Comment:Antibodies to HCV no t detected; does not exclude early acuteHCV infection. Blood Venous blood specimen / Unknown 12/13/2024 12:09 PM EDT 12/13/2024 1:13 PM EDT us Melissa Dupont NP LAB BLOOD ORDERABLES Final Resul t Performing Organization Address [facility] Co de Phone Number [facility] [address] [place] [phone] * HIV-1/2 Antigen and Antibodies, Fourth Generation, with Reflexes (12/13/2024 12:09 PM EDT) Pathologist [facility] HIV AB/AG Nonreactive Nonreactive [facility] Comment:HIV-1 p24 Ag and/or HIV-1/HIV-2 Ab not detected.A test result that is nonreactive does not exclude thepossibility of exposure to or infection with HIV-1 and/orHIV-2. Nonreactive results in this assay for individualswith prior exposure to HIV-1 and/or HIV-2 may be due toantigen and antibody levels that are below the limit ofdetection of this assay.The [employer] HIV Ag/Ab Combo assay result andsupplemental assay results should be interpreted inconjunction with the patient's clinical presentation,history and other laboratory results. If the results areinconsistent with clinical evidence, additional testing issuggested to confirm the result. Blood Venous blood specimen / Unknown 12/13/2024 12:09 PM EDT 12/13/2024 1:13 PM EDT us Melissa Dupont NP LAB BLOOD ORDERABLES Final Resul t Performing Organization Address [facility] Co de Phone Number [facility] [address] [place] [address] [phone] * THINPREP PAP (03/14/2020 4:02 PM EDT) Pathologist [facility] Clinical Information: [facility] Comment:None given COMMENT [facility] Comment: EXPLANATORY NOTE: The Pap is a screening test for cervical cancer. It is not a diagnostic test and is subject to false negative and false positive results. It is most reliable when a satisfactory sample, regularly obtained, is submitted with relevant clinical findings and history, and when the Pap result is evaluated along with historic and current clinical information. Aircraft Restorer: [facility] Comment: GABRIELLE, CT(ASCP) CT screening location: [address] [address] Interpretation/Resu lt: [facility] Comment:Negative for intraep ithelial lesion or malignancy. LMP: [facility] Comment:02/22/20 Prev. BX: [facility] Prev. PAP: [facility] Comment:NONE GIVEN Review Aircraft Restorer: [facility] Comment: MSM, CT(ASCP) CT screening location: [place] [address] SOURCE: [facility] Comment:None given Statement Of Adequacy: [facility] Comment: Satisfactory for evaluation. Endocervical/transformation zone component present. 03/14/2020 4:02 PM EDT us Susan BALDWIN LAB PATHOLOGY ORDERABLES Final Result [facility] [address] from Last 3 Months or Most Recently Relevant to Health Maintenance Insurance N PARTIAL Care Teams Silk Examiner Relationship Specialty Start Date End Date Melissa Dupont NP [address] [place] [phone] PCP - General Family Medicine 03/10/24
--- OUTSIDE RECORDS SUMMARY | 2025-07-27 19:03 | XMS_ITS | Encounter Summary ---
Author Organization [employer] Address [address] [facility] [address] [place] [address] Care Team Providers Care Bottom Pounder Cement Shoes Name Role Phone Melissa Dupont NP Primary Care Provider [phone] Reason for Visit * Reason Onset Date Comments Nurse Triage 07/26/2025 Encounter Details Date Type Department Care Team ([facility] st Contact Info) Description 07/26/2025 Telephone [facility] [address] [place], [place] [phone] Melissa Dupont NP [address] [place] [address] Nurse Triage Social History Tobacco Use Types Packs/Day Years [...] AM EDT documented as of this encounter Miscellaneous Notes * Telephone Encounter - Ary Newberry RN - 07/27/2025 9:30 AM EST TC to pt. No answer. left instructing pt to return call to office. * Telephone Encounter - Ary Newberry RN - 07/26/2025 4:56 PM EST TC to pt. Pt states has cracks on the corners of her mouth stating skin is very dry and cracked. Pt states have been present for multiple weeks and sometimes improves but also worsens with peeling.Denies circular sores on mouth. Denies history of cold sores, fevers, or flu like symptoms. Pt states that mucous membranes are moist and that it is only the corners of her mouth that have the cracks . Pt is concerned of potential STI causing mouth sores. Pt states would need to request work off to have an appointment. Author advised will reach out to [facility] for potential STI testing and will update pt with plan or to schedule an appointment for pt to be seen. Protocol Used: Cold Sores (Fever Blisters) (Adult) Protocol-Based Disposition: Home Care Positive Triage Question: * Cold sore without complications * All higher-acuity triage questions were negative. Care Advice Discussed: * Reasons To Call Back - Sores look infected (pus, spreading redness) - Sores occur near or in the eye - Sores last longer than 2 weeks - You become worse * Telephone Encounter - Ary Newberry RN - 07/26/2025 4:25 PM EST TC to pt with [facility] certified court/medical interpreter. Pt states she speaks Macedonian and she is currently at work and request if can return call in half an hour when she is out of work. Advised can call at 4:50 PM and advised unable to offer later call due to office closing at 5 PM. Pt verbalized understanding and agreement with plan. * Telephone Encounter - Calderon Forman - 07/26/2025 1:17 PM EST Symptom: Mouth Sores or Ulcers - Caller Reports Outcome: Schedule an urgent appointment (within 4 hours) or talk to a nurse or provider soon Reason: Trouble drinking The caller accepted this outcome. documented in this encounter Plan of Treatment Not on file documented as of this encounter Visit Diagnoses Not on filedocumented in this encounter Additional Health Concerns Assessment Noted Time PHQ-9 Depression Total Score: 2 12/14/19 25 11:59 AM EDT documented as of this encounter Care Teams Bottom Pounder Cement Shoes Relationship Specialty Start Date End Date Melissa Dupont NP [address] [place] [phone] PCP - General Family Medicine 03/10/24 documented as of this encounter
--- NOTE | 2025-07-27 19:21 | PC.NURSE ---
Assumed care of pt, visual acuity testing completed w/o corrective lenses. DR. Cooper aware.
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
[2025-07-27 19:50] VITALS: BP 122/78; PULSE 88; RESP 16; TEMP 36.4; O2SAT 99
== END 2025-07-27 19:53 | disposition home or self-care (01) ==
PROVIDERS: Emergency Provider Emergency Medicine Emergency Medical Services
DX: S02.32XA Fracture of orbital floor, left side, initial encounter for closed fracture (principal); R51.9 Headache, unspecified; M54.2 Cervicalgia; Y04.8XXA Assault by other bodily force, initial encounter; Y93.9 Activity, unspecified; Y92.9 Unspecified place or not applicable; Y99.8 Other external cause status
CPT/HCPCS: 70450; 70486; 72125; 99282; 99284

== ENCOUNTER → 2025-07-27 15:30 | Outpatient (BNV) | payer MEDICAID, SELFPAY | PROVIDERS: Visit Provider Radiology Diagnostic Radiology | DX: Z04.3 Encounter for examination and observation following other accident (principal); S02.832A Fracture of medial orbital wall, left side, initial encounter for closed fracture; Y04.0XXA Assault by unarmed brawl or fight, initial encounter | CPT/HCPCS: 70450; 70486; 72125 ==